=== PATIENT | male | born 1935 | race Caucasian/White ===

== ENCOUNTER → 2016-08-05 | Outpatient (CLI) | payer OTHER ==
[~2016-08-05] MED LIST: LISI-357 PO; OMEP20TA39 PO; SIMV20 PO
--- NOTE | 2016-08-28 13:18 | RSPPFT ---
DATE OF PROCEDURE: 08/05/16 COMMENTS: VOLUMES DYNAMIC: FVC and FEV1 normal. STATIC: VTG moderately increased; RV severely increased; TLC normal. FLOWS: FEV1% normal; FEF 25-75 normal. DIFFUSION: Normal. FLOW VOLUME LOOP: Normal configuration. IMPRESSION: Essentially normal pulmonary function. No significant airways obstruction or restriction. Airways resistance is normal. Diffusion is normal.
== END ==
LOC: HRSP 08:43
PROVIDERS: ATTEND Internal Medicine
DX: J44.9 Chronic obstructive pulmonary disease, unspecified (principal)
CPT/HCPCS: 94060; 94620; 94726; 94729

== ENCOUNTER 2017-01-23 13:59 | Inpatient (IN) | payer OTHER, MEDICARE ==
[~2017-01-23] VITALS: Ht 180.3 cm; Wt 95.5 kg
[2017-01-23] VITALS (9 sets, daily range): BP systolic 90–144; BP diastolic 52–92; PULSE 82–97; RESP 16–24; TEMP 97.6–98.2; O2SAT 95–100
[2017-01-23] MEDS ORDERED: SIMV20TA PO (14:20)
[2017-01-23] MEDS ORDERED: ALLO100T PO (14:20)
[2017-01-23] MEDS ORDERED: LISI-519 PO (14:20)
[2017-01-23] MEDS ORDERED: OMEP20TA PO ×2 (14:20→15:48)
--- NOTE | 2017-01-23 14:28 | PD ---
HPI Chief Complaint: Respiratory Symptoms Time Seen by Provider: 14:12 Travel History International Travel<30 days: No Contact w/Intl Traveler<30days: No Traveled to known affect area: No History of Present Illness HPI The patient is a 81-year-old male who presents to the emergency department for shortness of breath. The patient states he developed exertional shortness of breath yesterday. The patient states every time he stands up and ambulates he developed shortness of breath followed by nausea and diaphoresis. The patient will sit down in his symptoms will resolve. He denies any chest pain associated with his exertional shortness of breath. The patient does have a history of hypertension, hyperlipidemia, and tobacco use. He denies any known history of coronary artery disease, COPD, congestive heart failure, pulmonary embolism, or DVT. The patient is followed by his primary physician, Dr. Lucio Magana, and states that his primary physician referred him to the emergency department earlier today for EKG changes and exertional shortness of breath. The patient has been seen by gumming machine operator in the past, Dr. Mchugh. The patient states he had a stress test with his gumming machine operator approximate 6-7 years ago which was negative, however, states he has not seen his gumming machine operator in over 3 years. Symptoms are moderate, worse with exertion, and alleviated at rest. PFSH Past Medical History Hx Anticoagulant Therapy: No Cardiovascular Problems: Yes (htn on meds) High Cholesterol: Yes GERD: Yes Hypertension: Yes Respiratory: No Past Surgical History Joint Replacement: Yes Other Surgery: Yes (HERNIA REPAIR) Social History Alcohol Use: Yes (SOCAIL) Tobacco Use: Yes Substance Use: No Allergies-Medications (Allergen,Severity, Reaction): Coded Allergies: No Known Allergies (Unverified , 01/23/17) Reported Meds & Prescriptions Reported Meds & Active Scripts Active Reported Vitamin E 100 Unit Tab 100 Units PO DAILY Omeprazole 20 Mg Tab 0 PO DAILY Allopurinol 100 Mg Tab 100 Mg PO DAILY Lisinopril 5 Mg Tab 20 Mg PO DAILY Simvastatin 20 Mg Tab 40 Mg PO DAILY Review of Systems Except as stated in HPI: all other systems reviewed are Neg HENT: No: Lightheadedness Cardiovascular: Positive: Diaphoresis, Dyspnea on exertion, No: Chest Pain or Discomfort Respiratory: Positive: Shortness of Breath Gastrointestinal: Positive: Nausea Musculoskeletal: No: Weakness, Edema Neurologic: No: Dizziness Physical Exam Narrative GENERAL: Awake, alert, pleasant 81-year-old male who appears his stated age and is in no acute respiratory distress. SKIN: Focused skin assessment warm/dry. HEAD: Atraumatic. Normocephalic. EYES: No injection or drainage. ENT: No nasal bleeding or discharge. Lower dentures in place, no upper dentures noted. NECK: Trachea midline. No JVD. CARDIOVASCULAR: Regular rate and rhythm. No murmur appreciated. RESPIRATORY: No accessory muscle use. Clear to auscultation. Breath sounds equal bilaterally. GASTROINTESTINAL: Abdomen soft, non-tender, nondistended. No rebound tenderness. MUSCULOSKELETAL: No obvious deformities. No clubbing. No cyanosis. No edema. NEUROLOGICAL: Awake and alert. No obvious cranial nerve deficits. Motor grossly within normal limits. Normal speech. PSYCHIATRIC: Appropriate mood and affect; insight and judgment normal. Data Data Last Documented VS Vital Signs Date Time Temp Pulse Resp B/P Pulse Ox O2 Delivery O2 Flow Rate FiO2 01/23/17 15:33 90 18 90/75 99 01/23/17 14:38 Nasal Cannula 2 01/23/17 14:05 98.2 Orders Electrocardiogram (01/23/17 14:20) B-Type Natriuretic Peptide (01/23/17 14:20) Ckmb (Isoenzyme) Profile (01/23/17 14:20) Complete Blood Count With Diff (01/23/17 14:20) Comprehensive Metabolic Panel (01/23/17 14:20) Magnesium (Mg) (01/23/17 14:20) Prothrombin Time / Inr (Pt) (01/23/17 14:20) Act Partial Throm Time (Ptt) (01/23/17 14:20) Troponin I (01/23/17 14:20) Chest, Single Ap (01/23/17 14:20) Ecg Monitoring (01/23/17 14:20) Bilateral Bp Monitoring (01/23/17 14:20) Iv Access Insert/Monitor (01/23/17 14:20) Oximetry (01/23/17 14:20) Oxygen Administration (01/23/17 14:20) Aspirin Chew (Aspirin Chew) (01/23/17 14:30) Sodium Chloride 0.9% Flush (Ns Flush) (01/23/17 14:30) CKMB (01/23/17 14:23) CKMB% (01/23/17 14:23) Admit Order (Ed Use Only) (01/23/17 15:34) Consult Cardiology (01/23/17 ) Heparin Infusion PEARL.Q1H (01/23/17 15:40) Heparin Inj (Heparin Inj) (01/23/17 15:45) Heparin Inj (Heparin Inj) (01/23/17 21:45) Heparin Inj (Heparin Inj) (01/23/17 21:45) Heparin-D5w Inj (Heparin-D5w Inj) (01/23/17 15:45) Cbc No Diff, Includes Plts (01/26/17 06:00) Act Partial Throm Time (Ptt) (01/23/17 22:40) Occult Blood (Hemoccult) Stool (01/23/17 15:40) (Hub Use Only)Inp Phy Cons/Ref (01/23/17 ) Labs Laboratory Tests Test 01/23/17 14:23 White Blood Count 9.4 TH/MM3 Red Blood Count 3.91 MIL/MM3 Hemoglobin 12.9 GM/DL Hematocrit 38.9 % Mean Corpuscular Volume 99.5 FL Mean Corpuscular Hemoglobin 33.1 PG Mean Corpuscular Hemoglobin 33.3 % Concent Red Cell Distribution Width 14.8 % Platelet Count 179 TH/MM3 Mean Platelet Volume 8.8 FL Neutrophils (%) (Auto) 78.5 % Lymphocytes (%) (Auto) 15.0 % Monocytes (%) (Auto) 5.5 % Eosinophils (%) (Auto) 0.3 % Basophils (%) (Auto) 0.7 % Neutrophils # (Auto) 7.4 TH/MM3 Lymphocytes # (Auto) 1.4 TH/MM3 Monocytes # (Auto) 0.5 TH/MM3 Eosinophils # (Auto) 0.0 TH/MM3 Basophils # (Auto) 0.1 TH/MM3 CBC Comment DIFF FINAL Differential Comment Prothrombin Time 10.8 SEC Prothromb Time International 1.0 RATIO Ratio Activated Partial 29.9 SEC Thromboplast Time Sodium Level 138 MEQ/L Potassium Level 3.8 MEQ/L Chloride Level 103 MEQ/L Carbon Dioxide Level 24.3 MEQ/L Anion Gap 11 MEQ/L Blood Urea Nitrogen 33 MG/DL Creatinine 1.50 MG/DL Estimat Glomerular Filtration 45 ML/MIN Rate Random Glucose 101 MG/DL Calcium Level 9.4 MG/DL Magnesium Level 1.6 MG/DL Total Bilirubin 0.4 MG/DL Aspartate Amino Transf 27 U/L (AST/SGOT) Alanine Aminotransferase 28 U/L (ALT/SGPT) Alkaline Phosphatase 88 U/L Total Creatine Kinase 112 U/L Creatine Kinase MB 4.5 NG/ML Troponin I 0.39 NG/ML B-Type Natriuretic Peptide 325 PG/ML Total Protein 7.4 GM/DL Albumin 3.7 GM/DL MDM Medical Decision Making Medical Screen Exam Complete: Yes Emergency Medical Condition: Yes Medical Record Reviewed: Yes Interpretation(s) EKG reveals normal sinus rhythm with a rate in 91. The patient has T-wave changes noted in leads 1 and aVL. Patient also has inverted T waves in lead V3 , V4, V5, and V6. Last Impressions Chest X-Ray 01/23/17 1420 Signed Impressions: Service Date/Time: , January 23, 2017 14:43 - CONCLUSION: No acute disease. Rafi Still MD Laboratory Tests Test 01/23/17 14:23 White Blood Count 9.4 TH/MM3 Red Blood Count 3.91 MIL/MM3 Hemoglobin 12.9 GM/DL Hematocrit 38.9 % Mean Corpuscular Volume 99.5 FL Mean Corpuscular Hemoglobin 33.1 PG Mean Corpuscular Hemoglobin 33.3 % Concent Red Cell Distribution Width 14.8 % Platelet Count 179 TH/MM3 Mean Platelet Volume 8.8 FL Neutrophils (%) (Auto) 78.5 % Lymphocytes (%) (Auto) 15.0 % Monocytes (%) (Auto) 5.5 % Eosinophils (%) (Auto) 0.3 % Basophils (%) (Auto) 0.7 % Neutrophils # (Auto) 7.4 TH/MM3 Lymphocytes # (Auto) 1.4 TH/MM3 Monocytes # (Auto) 0.5 TH/MM3 Eosinophils # (Auto) 0.0 TH/MM3 Basophils # (Auto) 0.1 TH/MM3 CBC Comment DIFF FINAL Differential Comment Prothrombin Time 10.8 SEC Prothromb Time International 1.0 RATIO Ratio Activated Partial 29.9 SEC Thromboplast Time Sodium Level 138 MEQ/L Potassium Level 3.8 MEQ/L Chloride Level 103 MEQ/L Carbon Dioxide Level 24.3 MEQ/L Anion Gap 11 MEQ/L Blood Urea Nitrogen 33 MG/DL Creatinine 1.50 MG/DL Estimat Glomerular Filtration 45 ML/MIN Rate Random Glucose 101 MG/DL Calcium Level 9.4 MG/DL Magnesium Level 1.6 MG/DL Total Bilirubin 0.4 MG/DL Aspartate Amino Transf 27 U/L (AST/SGOT) Alanine Aminotransferase 28 U/L (ALT/SGPT) Alkaline Phosphatase 88 U/L Total Creatine Kinase 112 U/L Creatine Kinase MB 4.5 NG/ML Troponin I 0.39 NG/ML B-Type Natriuretic Peptide 325 PG/ML Total Protein 7.4 GM/DL Albumin 3.7 GM/DL Differential Diagnosis Differential diagnosis includes angina, acute coronary syndrome, congestive heart failure, COPD, deconditioning, valvular dysfunction, pleural effusion, pericardial effusion, pulmonary embolism. Narrative Course IV was established, labs are drawn and sent, and the patient was placed on cardiac telemetry monitoring and continuous pulse oximetry monitoring. EKG was ordered and interpreted. The patient was administered aspirin 162 mg orally. Chest x-ray was obtained. I reviewed the EMR, the patient had a pulmonary function test performed July 2016 which was unremarkable. There was no evidence of obstructive or restrictive disease. Chest x-ray was unremarkable. The patient's CK-MB percentage was elevated at 4.5, CPK was normal, troponin was elevated at 0.39. It appears the patient is having a NSTEMI, currently chest pain-free. I placed a call to the patient's gumming machine operator from several years ago, Dr. Fitzgerald, however, the office stated that the patient had not been seen in over 3 years and that the patient should go to the on-call physician. The patient has [employer], therefore, the on-call gumming machine operator for [facility], Dr. Chapa, was paged. I also discussed the patient with Dr. Willson, the [facility] hospitalist for admission. The patient will require transfer to [facility], cardiac telemetry and/or CIC and most likely will need cardiac catheterization. I will discuss heparin versus Lovenox with Dr. Chapa. I discussed the patient with Dr. Chapa who recommends heparin. I discussed the heparin plan with the admitting physicians. Critical Care Narrative Aggregate critical care time was 35 minutes. Time to perform other separately billable procedures was not included in the critical care time. My time did not include minutes spent treating any other patients simultaneously or on activities that did not directly contribute to the patient's treatment. The services I provided to this patient were to treat and/or prevent clinically significant deterioration that could result in: Anoxia, hypoxia, ischemia, arrhythmia, congestive heart failure, cardiomyopathy, and . I provided critical care services requiring my management, as noted below: Chart data review, documentation time, medication orders and management, vital sign assessments/reviewing monitor data, ordering and reviewing lab tests, ordering and interpreting/reviewing x-rays and diagnostic studies, care of the patient and discussion of the patient with the admitting physicians. Physician Communication Physician Communication The on-call [employer] physician was paged for admission. The on-call gumming machine operator for [facility] was paged. Diagnosis Primary Impression: NSTEMI (non-ST elevated myocardial infarction) Admitting Information Admitting Physician Requests: Admit Condition: Stable Rj Hernandez MD Jan 23, 2017 14:28
[2017-01-23] MEDS ORDERED: SODIUM CHLORIDE 0.9% FLUSH 10 ML FLUSH IVF PRN (14:30)
[2017-01-23] MEDS ORDERED: VITA100T65 PO (14:30)
[2017-01-23] MEDS ORDERED: ASPIRIN 81 MG CHEW TAB PO ONE (14:30)
[2017-01-23 14:37] LABS: AUTOMATED NEUTROPHIL # 7.4 TH/MM3 (1.8-7.7); BASOPHIL # 0.1 TH/MM3 (0-0.2); BASOPHIL % 0.7 % (0.0-2.0); EOSINOPHIL % 0.3 % (0.0-4.0); HEMATOCRIT 38.9 % (39.0-51.0); LYMPHOCYTE # 1.4 TH/MM3 (1.0-4.8); MEAN CELL VOLUME 99.5 FL (80.0-100.0); MEAN CORPUSCULAR HEMOGLOBIN 33.1 PG (27.0-34.0); MEAN CORPUSCULAR HGB CONC 33.3 % (32.0-36.0); MONO % 5.5 % (0.0-8.0); NEUT % 78.5 % (16.0-70.0); PLATELET COUNT 179 TH/MM3 (150-450); RED BLOOD COUNT 3.91 MIL/MM3 (4.50-5.90); RED CELL DISTRIBUTION WIDTH 14.8 % (11.6-17.2); WHITE BLOOD COUNT 9.4 TH/MM3 (4.0-11.0)
[2017-01-23 14:47] LABS: CHLORIDE 103 MEQ/L (98-107); POTASSIUM 3.8 MEQ/L (3.5-5.1); SODIUM (NA) 138 MEQ/L (136-145)
[2017-01-23 14:50] LABS: ANION GAP 11 MEQ/L (5-15); BICARBONATE 24.3 MEQ/L (21.0-32.0); MAGNESIUM 1.6 MG/DL (1.5-2.5)
[2017-01-23 14:51] LABS: BLOOD UREA NITROGEN 33 MG/DL (7-18); HEMO FLAGS DIFF FINAL
[2017-01-23 14:52] LABS: APTT (PATIENT) 29.9 SEC (24.3-30.1); PROTHROMBIN TIME - PATIENT 10.8 SEC (9.8-11.6)
--- NOTE | 2017-01-23 14:52 | RADRPT ---
EXAM DATE/TIME: 01/23/2017 14:43 [place] COMPARISON: No previous studies available for comparison. INDICATIONS : Shortness of breath on exertion. MEDICAL HISTORY : Hypertension. Hypercholesterolemia. Smoker. SURGICAL HISTORY : Hernia repair. Knee replacement. ENCOUNTER: Initial ACUITY: 2 days PAIN SCORE: 0/10 LOCATION: chest FINDINGS: A single view of the chest demonstrates the lungs to be symmetrically aerated without evidence of mas s, infiltrate or effusion. The cardiomediastinal contours are unremarkable. Osseous structures are intact. CONCLUSION: No acute disease. Rafi Still MD on January 23, 2017 at 14:50 Board Certified Radiologist. This report was verified electronically.
[2017-01-23 14:53] LABS: ALT (GPT) 28 U/L (12-78)
[2017-01-23 14:54] LABS: AST (GOT) 27 U/L (15-37); GLOMERULAR FILTRATION RATE 45 ML/MIN (>89)
[2017-01-23 14:55] LABS: TOTAL BILIRUBIN ADULT 0.4 MG/DL (0.2-1.0)
[2017-01-23 14:56] LABS: ALKALINE PHOSPHATASE 88 U/L (45-117); CREATINE KINASE 112 U/L (39-308)
[2017-01-23 15:08] LABS: CKMB 4.5 NG/ML (0.5-3.6)
[2017-01-23] MEDS ORDERED: HEPARIN SODIUM - IV 10,000 UNITS/10 ML VIAL IV ONE (15:45)
[2017-01-23] MEDS ORDERED: HEPARIN-D5W 25,000 U/250 ML 250 ML IV SCH (15:45)
[2017-01-23] MEDS ORDERED: ALPRAZolam 0.25 MG TAB PO PRN (16:00)
[2017-01-23] MEDS ORDERED: ONDANSETRON HCL 4 MG/2 ML VIAL IV PRN (16:00)
[2017-01-23] MEDS ORDERED: DOCUSATE SODIUM 100 MG CAP PO PRN (16:00)
--- NOTE | 2017-01-23 16:11 | HHI.HP ---
[facility] Service [facility] Primary Care Physician Lucio Magana MD Admission Diagnosis NSTEMI, elevated troponin, exertional dyspnea Diagnoses: Chief Complaint: Dyspnea on exertion Travel History International Travel<30 Days: No Contact w/Intl Traveler <30 Da: No Traveled to Known Affected Are: No History of Present Illness 81-year-old male with a medical history significant for hypertension, hyperlipidemia, gout, tobacco abuse who presented to the hospital with complaint of worsening shortness of breath on exertion. The patient reports for the past couple of months his physical abilities has been in decline. He has not been able to do as much yard work. Yesterday his symptoms became worse and he gets short of breath with minimal activities. Associated symptoms include diaphoresis and nausea. He denies chest pain. Initial workup in the emergency room revealed abnormal EKG with inverted T waves and elevated troponin I. ED physician discussed the case with cardiology who requested heparin drip and transferred to the [facility] for possible heart catheterization. Review of Systems Constitutional: DENIES: Fever Respiratory: COMPLAINS OF: Shortness of breath, DENIES: Cough Cardiovascular: COMPLAINS OF: Dyspnea on Exertion, DENIES: Chest pain, Palpitations, Syncope Gastrointestinal: COMPLAINS OF: Nausea, DENIES: Vomiting Past Family Social History Past Medical History hypertension Gout hyperlipidemia tobacco abuse Past Surgical History Tonsillectomy Left knee arthroscopic surgery and left knee replacement and revision. Reported Medications Reported Meds & Active Scripts Active Omeprazole 20 Mg Tab 20 Mg PO DAILY Reported Vitamin E 100 Unit Tab 100 Units PO DAILY Allopurinol 100 Mg Tab 100 Mg PO DAILY Lisinopril 5 Mg Tab 20 Mg PO DAILY Simvastatin 20 Mg Tab 40 Mg PO DAILY Allergies: Coded Allergies: No Known Allergies (Unverified , 01/23/17) Family History Reviewed. No known heart disease in close relatives. Social History Patient reports he has been smoking cigarettes on and off for a long time. When he does smoke, he reports smoking 8-10 cigarettes. Admits to drinking 2-3 beers daily. No history of alcohol withdrawal symptoms. Physical Exam Vital Signs Vital Signs Date Time Temp Pulse Resp B/P Pulse Ox O2 Delivery O2 Flow Rate FiO2 01/23/17 15:33 90 18 90/75 99 01/23/17 14:38 92 18 106/52 95 Nasal Cannula 2 113/77 01/23/17 14:30 98 01/23/17 14:05 98.2 94 16 138/92 97 Physical Exam GENERAL: This is a well-nourished, well-developed patient, in no apparent distress. SKIN: No rashes, ecchymoses or lesions. Cool and dry. HEAD: Atraumatic. Normocephalic. No temporal or scalp tenderness. EYES: Pupils equal round and reactive. Extraocular motions intact. No scleral icterus. No injection or drainage. ENT: Nose without bleeding, purulent drainage or septal hematoma. Throat without erythema, tonsillar hypertrophy or exudate. Uvula midline. Airway patent. NECK: Trachea midline. No JVD or lymphadenopathy. Supple, nontender, no meningeal signs. CARDIOVASCULAR: Regular rate and rhythm without murmurs, gallops, or rubs. RESPIRATORY: Clear to auscultation. Breath sounds equal bilaterally. No wheezes , rales, or rhonchi. GASTROINTESTINAL: Abdomen soft, non-tender, nondistended. No hepato-splenomegaly , or palpable masses. No guarding. MUSCULOSKELETAL: Extremities without clubbing, cyanosis, or edema. No joint tenderness, effusion, or edema noted. No calf tenderness. Negative Homans sign bilaterally. NEUROLOGICAL: Awake and alert. Cranial nerves II through XII intact. Motor and sensory grossly within normal limits. Five out of 5 muscle strength in all muscle groups. Normal speech. Laboratory Laboratory Tests Test 01/23/17 14:23 White Blood Count 9.4 Red Blood Count 3.91 Hemoglobin 12.9 Hematocrit 38.9 Mean Corpuscular Volume 99.5 Mean Corpuscular Hemoglobin 33.1 Mean Corpuscular Hemoglobin 33.3 Concent Red Cell Distribution Width 14.8 Platelet Count 179 Mean Platelet Volume 8.8 Neutrophils (%) (Auto) 78.5 Lymphocytes (%) (Auto) 15.0 Monocytes (%) (Auto) 5.5 Eosinophils (%) (Auto) 0.3 Basophils (%) (Auto) 0.7 Neutrophils # (Auto) 7.4 Lymphocytes # (Auto) 1.4 Monocytes # (Auto) 0.5 Eosinophils # (Auto) 0.0 Basophils # (Auto) 0.1 CBC Comment DIFF FINAL Differential Comment Prothrombin Time 10.8 Prothromb Time International 1.0 Ratio Activated Partial 29.9 Thromboplast Time Sodium Level 138 Potassium Level 3.8 Chloride Level 103 Carbon Dioxide Level 24.3 Anion Gap 11 Blood Urea Nitrogen 33 Creatinine 1.50 Estimat Glomerular Filtration 45 Rate Random Glucose 101 Calcium Level 9.4 Magnesium Level 1.6 Total Bilirubin 0.4 Aspartate Amino Transf 27 (AST/SGOT) Alanine Aminotransferase 28 (ALT/SGPT) Alkaline Phosphatase 88 Total Creatine Kinase 112 Creatine Kinase MB 4.5 Troponin I 0.39 B-Type Natriuretic Peptide 325 Total Protein 7.4 Albumin 3.7 Result Diagram: 01/23/17 1423 01/23/17 1423 Imaging Last Impressions Chest X-Ray 01/23/17 142 Signed Impressions: Service Date/Time: , January 23, 2017 14:43 - CONCLUSION: No acute disease. Rafi Still MD Assessment and Plan Problem List: (1) NSTEMI (non-ST elevated myocardial infarction) ICD Code: I21.4 Status: Acute (2) Hypertension ICD Code: I10 Status: Acute (3) Tobacco abuse ICD Code: Z72.0 Status: Acute (4) Hyperlipidemia ICD Code: E78.5 Status: Acute (5) Renal insufficiency ICD Code: N28.9 Status: Acute Assessment and Plan 81-year-old male with: NSTEMI: Chest pain-free but Elevated troponin and exertional dyspnea. Multiple risk factors including hypertension, age, hyperlipidemia, tobacco abuser. Patient already received aspirin. End Trimmer has been consulted. Plan to transfer the main hospital for heart catheterization On heparin drip per protocol Continue statin Hypertension: Last blood pressure was 90/75. Patient normally takes lisinopril 20 mg daily at home. Hold antihypertensives and beta blockers for now. Monitor blood pressure and introduce meds as indicated. Hyperlipidemia: Continue statin Renal insufficiency: May have some degree of CKD. Gentle IV hydration. Follow BMP in a.m. Gout: Continue allopurinol GI prophylaxis: Stool softener PRN constipation. DVT PPx: Lovenox Discussed Condition With Dr. Hernandez. Physician Certification 2 Midnight Certification Type: Admission for Inpatient Services Order for Inpatient Services The services are ordered in accordance with Medicare regulations or non- Medicare payer requirements, as applicable. In the case of services not specified as inpatient-only, they are appropriately provided as inpatient services in accordance with the 2-midnight benchmark. Estimated LOS (days): 3 days is the estimated time the patient will need to remain in the hospital, assuming treatment plan goals are met and no additional complications. Post-Hospital Plan: Home Zane Willson MD Jan 23, 2017 16:11
[2017-01-23] MEDS ORDERED: CHLORHEXIDINE GLUCONATE 2 % 1 PACK (2 CLOTHS)(extra cloths) TOPICAL PRN (20:00)
[2017-01-23] MEDS: SODIUM CHLOR 0.9% 1000 ML INJ 1,000 ML IV SCH (20:00)
[2017-01-23] MEDS ORDERED: HEPARIN SODIUM - IV 10,000 UNITS/10 ML VIAL IV PRN ×2 (21:45)
[2017-01-23 23:39] LABS: APTT (PATIENT) 50.7 SEC (24.3-30.1)
[2017-01-23 23:50] LABS: CREATINE KINASE 110 U/L (39-308); HDL CHOLESTEROL 61.5 MG/DL (40.0-60.0); LDL CHOLESTEROL 39 MG/DL (0-99)
[2017-01-24] VITALS (16 sets, daily range): BP systolic 108–136; BP diastolic 65–78; PULSE 65–85; RESP 17–39; TEMP 97.7–98.8; O2SAT 93–98
[2017-01-24 00:02] LABS: CKMB 4.4 NG/ML (0.5-3.6)
[2017-01-24] MEDS ORDERED: CHLORHEXIDINE GLUCONATE 2 % 1 PACK (2 CLOTHS)(taper/protocol) TOPICAL SCH (04:00)
[2017-01-24 06:52] LABS: APTT (PATIENT) 50.2 SEC (24.3-30.1)
[2017-01-24 06:54] LABS: BASOPHIL % 0.6 % (0.0-2.0); EOSINOPHIL # 0.1 TH/MM3 (0-0.4); HEMATOCRIT 35.6 % (39.0-51.0); HEMO FLAGS DIFF FINAL; LYMPH % 18.2 % (9.0-44.0); LYMPHOCYTE # 1.3 TH/MM3 (1.0-4.8); MEAN CELL VOLUME 101.4 FL (80.0-100.0); MEAN CORPUSCULAR HEMOGLOBIN 34.1 PG (27.0-34.0); MEAN CORPUSCULAR HGB CONC 33.6 % (32.0-36.0); MONO % 10.1 % (0.0-8.0); NEUT % 69.1 % (16.0-70.0); PLATELET COUNT 142 TH/MM3 (150-450); RED BLOOD COUNT 3.51 MIL/MM3 (4.50-5.90); RED CELL DISTRIBUTION WIDTH 14.3 % (11.6-17.2); WHITE BLOOD COUNT 7.2 TH/MM3 (4.0-11.0)
[2017-01-24 06:58] LABS: BICARBONATE 25.1 MEQ/L (21.0-32.0); POTASSIUM 3.6 MEQ/L (3.5-5.1)
--- NOTE | 2017-01-24 08:34 | HHI.PR ---
Subjective Remarks f/u; NSTEMI resting comfortably with no distress. no chest pain, sob or any other complaints. Objective Vitals Vital Signs Date Time Temp Pulse Resp B/P Pulse Ox O2 Delivery O2 Flow Rate FiO2 01/24/17 06:00 73 01/24/17 04:00 76 01/24/17 04:00 97.7 76 18 125/76 98 01/24/17 02:00 73 01/24/17 00:00 98.8 77 20 108/72 93 01/24/17 00:00 77 01/23/17 22:00 82 01/23/17 20:00 97.6 85 24 122/76 99 01/23/17 20:00 85 01/23/17 19:30 85 24 144/87 100 01/23/17 18:07 95 20 106/71 98 Nasal Cannula 2 01/23/17 16:54 97 20 119/70 96 01/23/17 15:33 90 18 90/75 99 01/23/17 14:38 92 18 106/52 95 Nasal Cannula 2 113/77 01/23/17 14:30 98 01/23/17 14:05 98.2 94 16 138/92 97 I/O 01/23/17 01/23/17 01/23/17 01/24/17 01/24/17 01/24/17 07:00 15:00 23:00 07:00 15:00 23:00 Intake Total 738 ml 709 ml Output Total 150 ml 200 ml Balance 588 ml 509 ml Intake Oral 480 ml IV Total 258 ml 709 ml Output Urine Total 150 ml 200 ml # Voids 1 Result Diagram: 01/24/17 0631 01/24/17 0631 Imaging Last Impressions Chest X-Ray 01/23/17 1420 Signed Impressions: Service Date/Time: January 14:43 - CONCLUSION: No acute disease. Rafi Still MD Objective Remarks GENERAL: This is a well-nourished, well-developed patient, in no apparent distress. CARDIOVASCULAR: Regular rate and regular rhythm without murmurs, gallops, or rubs. RESPIRATORY: Clear to auscultation. Breath sounds equal bilaterally. No wheezes , rales, or rhonchi. GASTROINTESTINAL: Abdomen soft, non-tender, nondistended. Normal, active bowel sounds MUSCULOSKELETAL: Extremities without clubbing, cyanosis, or edema. NEURO: Alert & Oriented x4 to person, place, time, situation. Moves all ext x4 Medications and IVs Current Medications Aspirin (Aspirin Chew) 162 mg ONCE ONCE PO Last administered on 01/23/17 14: 34; Start 01/23/17 at 14:30; Stop 01/23/17 at 14:31; Status DC Sodium Chloride (NS Flush) 2 ml UNSCH PRN IVF FLUSH AFTER USING IV ACCESS; Start 01/23/17 at 14:30 Heparin Sodium (Porcine) (Heparin Inj) 5,000 units ONCE ONCE IV Last administered on 01/23/17 15:58; Start 01/23/17 at 15:45; Stop 01/23/17 at 15:46 ; Status DC Heparin Sodium (Porcine) (Heparin Inj) 5,000 units UNSCH PRN IV APTT LESS THAN 25; Start 01/23/17 at 21:45 Heparin Sodium (Porcine) 2500 units 2,500 units UNSCH PRN IV APTT 25 TO 39; Start 01/23/17 at 21:45 Heparin Sodium/ Dextrose (Heparin-D5W Inj) 250 ml @ 0 mls/hr TITRATE IV Last administered on 01/23/17 15:59; Start 01/23/17 at 15:45 Allopurinol (Zyloprim) 100 mg DAILY PO ; Start 01/24/17 at 09:00 Pravastatin Sodium (Pravachol) 80 mg DAILY PO ; Start 01/24/17 at 09:00 Pantoprazole Sodium (Protonix) 20 mg DAILY PO ; Start 01/24/17 at 09:00 Docusate Sodium (Colace) 100 mg BID PRN PO CONSTIPATION; Start 01/23/17 at 16: 00 Alprazolam (Xanax) 0.25 mg Q8H PRN PO ANXIETY; Start 01/23/17 at 16:00 Ondansetron HCl 4 mg 4 mg Q6H PRN IV NAUSEA OR VOMITING; Start 01/23/17 at 16: 00 Sodium Chloride (NS 1000 ml Inj) 1,000 ml @ 84 mls/hr [id number] IV Last administered on 01/23/17 20:00; Start 01/23/17 at 16:00 Miscellaneous Information Patient in critical care unit? Ass... [id number] Last administered on 01/23/17t 20:00; Start 01/23/17 at 20:00 Chlorhexidine Gluconate (Chlorhexidine 2% Cloth) 3 pack DAILY@04 TOPICAL ; Start 01/24/17 at 04:00; Stop 01/28/17 at 04:01 Chlorhexidine Gluconate (Chlorhexidine 2% Cloth) 3 pack UNSCH PRN TOPICAL HYGIENIC CARE; Start 01/23/17 at 20:00; Stop 01/28/17 at 19:52 A/P Assessment and Plan A/P NSTEMI: Chest pain-free but Elevated troponin and exertional dyspnea. Multiple risk factors including hypertension, age, hyperlipidemia, tobacco abuser. On heparin drip per protocol Continue statin - awaiting cardiology evaluation. Hypertension: Patient normally takes lisinopril 20 mg daily at home. BP overall on low-side. Hold antihypertensives and beta blockers for now. Monitor blood pressure and introduce meds as indicated. Hyperlipidemia: Continue statin Renal insufficiency: May have some degree of CKD. Gentle IV hydration. Gout: Continue allopurinol GI prophylaxis: Stool softener PRN constipation. DVT PPx: Lovenox Discharge Planning awaiting cardiac work-up. Jada Marks MD Jan 24, 2017 08:34
[2017-01-24] MEDS ORDERED: PILL SPLITTER OTHER PRN (09:00)
[2017-01-24] MEDS: ALLOPURINOL 100 MG TAB PO SCH (09:49)
[2017-01-24] MEDS: PANTOPRAZOLE SOD 20 MG DELAYED RELEASE TAB PO SCH (09:49)
[2017-01-24] MEDS: PRAVASTATIN SOD 80 MG TAB PO SCH (09:49)
[2017-01-24] MEDS: SODIUM CHLOR 0.9% 1000 ML INJ 1,000 ML IV SCH ×2 (09:49→20:41)
[2017-01-24] MEDS: METOPROLOL TARTRATE 25 MG TAB PO SCH ×2 (09:54→20:41)
[2017-01-24] MEDS: ASPIRIN EC 81 MG TABEC PO SCH (09:54)
--- NOTE | 2017-01-24 10:07 | MB ---
cc: BRANDIN BOYKIN DATE OF CONSULTATION 01/24/2017 DATE OF REASON FOR CONSULTATION Elevated troponins HISTORY OF PRESENT ILLNESS 81-year-old male with a past medical history significant for hypertension, hyperlipidemia, smoker who presented to the hospital yesterday for complaints of worsening shortness of breath, dizziness and diaphoresis. The patient reports that on Friday he was having some stomach aches felt that his stomach was distended. Then on Friday, when he stood up a couple of times, he felt nausea, shortness of breath, dizziness and diaphoresis. On of this week, he came in to see the PCP who did an EKG, saw some T-wave inversions and referred him to the emergency department. In the emergency department, he was consulted to cardiology and started on a heparin drip and IV hydration, continued his statins and transferred him to the main campus for further management and evaluation. Currently I am being consulted for elevated troponins. REVIEW OF SYSTEMS Negative except for what is mentioned in the HPI. PAST MEDICAL HISTORY 1. Hypertension 2. Hyperlipidemia tobacco abuse. PAST SURGICAL HISTORY 1. Tonsillectomy 2. Left knee arthroscopic surgery 3. Left knee replacement and revision MEDICATIONS Home medications: 1. Simvastatin 20 mg p.o. daily 2. Lisinopril 5 mg p.o. daily 3. Allopurinol 100 mg p.o. daily 4. Vitamin E 100 units tab p.o. daily ALLERGIES NO KNOWN DRUG ALLERGIES. FAMILY HISTORY Noncontributory SOCIAL HISTORY He is a smoker. He drinks two to three beers daily and he denies any illicit drug use. PHYSICAL EXAMINATION VITAL SIGNS: Temperature 97, respiratory rate 18, heart rate 76, blood pressure 126/76. GENERAL: She is awake, alert, and oriented x3 in no acute distress. NECK: No JVD, no carotid bruits. HEART: Regular rate and rhythm. No murmurs, rubs or gallops. LUNGS: Clear to auscultation bilaterally. ABDOMEN: Positive bowel sounds, soft, nontender, nondistended. EXTREMITIES: No cyanosis or edema and pulses throughout. DATA CBC hemoglobin 12, hematocrit 35, platelet count of 442, INR 1. Chemistries sodium 141, potassium 3.6, BUN 34, creatinine 1.4 trending down from 1.5, troponin 0.39 and 0.30, LDL 39, HDL 61, triglycerides 102, TSH 2.6. Chest x-ray Shows no acute cardiopulmonary process. EKG sinus rhythm with T-wave inversions in the anterolateral leads suggestive of ischemia. ASSESSMENT/PLAN 81-year-old male presenting with vague symptoms of nausea, shortness of breath, dizziness and diaphoresis concerning for a ACS. Troponin mildly elevated in the range of 0.39 and 0.30, also with a history of chronic kidney disease. Currently he remains fairly afebrile and hemodynamically stable. He does not have any cardiovascular complaints. Telemetry monitoring has been unremarkable. I have discussed with the patient the recommendation of doing a left heart cath today to further risk stratify CAD. The patient has chronic kidney disease that he understands the risk of getting dye given his condition. The risks and benefits of left heart cath and possible PCI including but not limited to neurovascular trauma, infection, bleeding, acute kidney injury, and worsening of his chronic kidney disease, stroke, emergent bypass surgery and have been explained to the patient. The patient understands the risks and he is willing to proceed. RECOMMENDATIONS 1. Keep n.p.o. for left heart cath today 2. Get a 2-D echocardiogram to assess LV systolic function. 3. Start aspirin, statins and beta-blockers. Thank you for the opportunity to take part in the care of this patient. Patient further management to be determined. MD JAMIR Dumont/PAULINA /9:16 AM /9:39 AM NESHA
[2017-01-24] MEDS ORDERED: MIDAZOLAM HCL 2 MG/2 ML VIAL ONE (11:54)
[2017-01-24] MEDS ORDERED: HEPARIN-NS/PF INJ 500 ML ONE (11:55)
[2017-01-24] MEDS ORDERED: HEPARIN SODIUM - IV 10,000 UNITS/10 ML VIAL ONE (11:55)
[2017-01-24] MEDS ORDERED: ADENOSINE STRESS TEST INJ 90 MG/30 ML VIAL ONE (12:49)
--- NOTE | 2017-01-24 13:23 | CATHPROC ---
[employer] HIS Report Study Information Study Number Admission Scheduled Start Study Start [id number] Jan 23 2017 3:37PM 01/24/2017 Jan 24 2017 11:23AM [place] [facility] Cardiac Catheterization Admit Source Facility Department Emergency department [facility] Physician and Clinical Staff Initial [place] Roldan Drilling Rig OperatorIleana Manning,VAL Drilling Rig Operator Sadiq Velasquez RN Recorder Jeanmarie, Yung,RT(R) Zainab Villa,SAMREEN TECH2 Procedures Performed Procedure Location (Site) Vessel Name Coronary Angiograms RCA Right Coronary Wire insertion Fem Art (right) Femoral Art Equipment Time Rubber Ball Finisher Description Size Mfg Part Number Used/Scraped PERCLOSE, PRO GLIDE CLOSER 13:00 STREETER CRITICAL CARE FR 6 [id number] *[id number] Used DEVICE TRANSDUCER, TRBlackArrowAVE [id number] 12:01 DIAS MADRID * Used W/STOCKCOCK *[id number]- INTRODUCER SET, 12:01 [employer]. FR 5 SC-NT-U-SST Used MICROPUNCTURE, STIFFENED *[id number] [id number] *[id number] 534-521T *[id number] [id number] *[id number] 12:01 [employer] INDUSTRIES PACK, CCL CUSTOM * Used *[id number] 12:41 MEDTRONIC/AVE EBU 3.5 Z2 GUIDE CATHETER FR 6 Used *[id number] 12:01 [employer] MEDICAL WIRE, 3MMJ .035 180CM 180CM Used *[id number] 12:01 NAMIC MANIFOLD, 4 PORT * Used *[id number] 12:01 NYCOMED OMNIPAQUE, 350 MG, 150ML 150ML [id number] Used 12:28 NYCOMED OMNIPAQUE, 350 MG, 150ML 150ML [id number] Used [id number] 12:01 [employer] MEDICAL BLANKET,WARM AIR CCL * Used *[id number] 12:01 TERUMO MEDICAL SHEATH, FR5 TERUMO (10CM) FR 5 Used *[id number] 12:44 [place]OL[place] PRIME WIRE, VERRATA 185CM 185CM [id number] *[id number] Used History: Current Medications Medication Dosage/Unit Route Frequency Last Date/Time Taken Statins (any) Allopurinol LISINOPRIL History: Allergies Allergy Reaction No Known Allergies History: Risk Factors Family History of Hypertension Dyslipidemia Previous DE Previous Heart Failure Premature CAD Yes Yes No No No Prior Valve Prior PCI Prior CABG Surgery No No No Cerebrovascular Peripheral Artery Chronic Lung On Dialysis Diabetes Disease Disease Disease No No No No No History: Other Current Smoker Quit Packs a Day Years Used Pack Years No 1 Years Ago 1 30 30 Labs Hgb (g/dl) Hct (%) WBC (l/cumm) Platelets (thousands) 11.60-17.00 35.00-51.00 4.00-11.00 150.00-450.00 12.0 35.6 7.2 142 Glucose (mg/dl) BUN (mg/dl) Creatinine (mg/dl) BUN:Creatinine (1:x) 74.00-106.00 7.00-18.00 0.50-1.30 10.00-20.00 94 34 1.4 24.3 Na (meq/l) K (meq/l) 136.00-145.00 3.50-5.10 141 3.6 INR (PTT:PT) 0.90-1.10 1 CPK-MB (ng/ML) 0.50-3.60 Not Drawn Medication Medication Total Dose (Bolus/Oral) Medication Total Dosage/Unit 1% XYLOCAINE 20 mL FENTANYL 50 mcg HEPARIN 6300 units VERSED 1 mg Medications (Bolus/Oral) Medication Time Given Dosage/Unit Administered By Reason VERSED 01/24/2017 12:18:00 PM 1 mg Sadiq Velasquez 1 mg VERSED given in lab by Sadiq Velasquez RN via Peripheral IV. Ordered by [place] Epperson. FENTANYL 01/24/2017 12:19:00 PM 50 mcg Sadiq Velasquez 50 mcg FENTANYL given in lab by Sadiq Velasquez RN via Peripheral IV. Ordered by [place] Epperson. 1% XYLOCAINE 01/24/2017 12:20:05 PM 20 mL [place] Epperson 20 mL 1% XYLOCAINE given in lab by [place] Epperson in Right Groin via Subcutaneous. HEPARIN 01/24/2017 12:38:00 PM 6300 units Sadiq Velasquez 6300 units HEPARIN given by Sadiq Velasquez RN via Peripheral IV. Ordered by [place] Epperson. Medication (Drip) Medication Time Given Dosage/Unit Concentration/Unit Diluent (ml) Solution ADENOSINE DRIP 01/24/2017 12:54:36 PM 756 mg/hr 90 mg 90 NaCl .9 756 mg/hr ADENOSINE DRIP given in lab by Sadiq Velasquez RN in Left Forearm via Peripheral IV. Pump/Dr ip Flow = 756 ml/hr using NaCl .9 with a concentration of 90 mg in 90 ml. ADENOSINE DRIP 01/24/2017 12:57:41 PM 0 units/hr 0 STOPPED 0 units/hr ADENOSINE DRIP STOPPED given in lab by Sadiq Velasquez RN. Pump/Drip Flow = 0 ml/hr using [ Solution Name]. IV Solutions 01/24/2017 11:57:23 AM 0 mL (IV) 500 NaCl .9 IV Solutions given in lab by Salinas Epperson in Left Forearm via Peripheral IV. Pump/Drip Flow = 20 ml/hr using NaCl .9. Ordered by Salinas Epperson. IV Solutions 01/24/2017 1:05:41 PM 0 mL (IV) 500 NaCl .9 IV Solutions given in lab by Ileana Aguayo RN in Left Forearm via Peripheral IV. Pump/Drip Flow = 125 ml/hr using NaCl .9. Ordered by Salinas Epperson. Reason: As per physicians verbal order. Initial Case Assessment Cardiovascular HR Rhythm NIBP Chest Pain 68 sr 118/75 0 Edema Present Skin color Skin None Normal Warm Dry Circulatory - Right Pulses Posterior Tibial Femoral 1 2 Scale (0,1,2,3,4,d) Circulatory - Left Pulses Posterior Tibial Femoral 1 2 Scale (0,1,2,3,4,d) Neurological State Oriented to time-place- Alert Moves all extremities person Respiration - General Respiration Rate SpO2 (%) O2 (lpm) (B/min) 18 99 0 Final Case Assessment Cardiovascular HR Rhythm NIBP Chest Pain 68 sr 118/75 0 Edema Present Skin color Skin None Normal Warm Dry Circulatory - Right Pulses Posterior Tibial Femoral 1 2 Scale (0,1,2,3,4,d) Circulatory - Left Pulses Posterior Tibial Femoral 1 2 Scale (0,1,2,3,4,d) Neurological State Oriented to time-place- Alert Moves all extremities person Respiration - General Respiration Rate SpO2 (%) O2 (lpm) (B/min) 18 99 2 Chronological Log Time Study Chronological Log 11:45:10 Patient arrived via Bed. 11:45:11 Patient Name, D.O.B, / Armband Verified By R.N. 11:45:12 Consent signed by the physician and the patient and verified by the [facility] staff. 11:45:13 Pre-op and post- op instructions given; patient acknowledges understanding of instructions . 11:45:15 Verbal Stimulation=2 Physical Stimulation=2 Airway=2 Respiration=2 TOTAL=8. (0=absent, 1=l imited, 2=present) Vitals capture started with the following parameters, Patient=Adult, Interval=5 min, Initial P eqboevr=722 mmHg, 11:56:33 Deflation Rate=5 mmHg, Cuff placed on Left Leg 11:56:42 Presedation assessment performed by Sp[facility] Helper RN. 11:56:43 Patient has been NPO for More than 6Hrs. 11:56:46 Skin Breakdown-none present per patient. 11:57:08 A # 20 IV was noted in the Forearm (left). Grade = 0 11:57:14 HR=67 bpm, MQRZ=966/75 mmhg, SpO2=97.0 %, Resp=17 B/min, Antonio=2 IV Solutions given in lab by Salinas Epperson in Left Forearm via Peripheral IV. Pump/Drip Fl ow = 20 ml/hr using NaCl 11:57:23 .9. Ordered by Salinas Epperson. 11:57:44 History and physical on the chart or being dictated. Assessment: Initial Case, HR=68 BPM, Rhythm=sr, ULDY=551/75 mmhg, Chest Pain=0, Edema=None, Co rosalie=Normal, Skin = Warm, Dry Right Pulses: Post Tib=1, Femoral=2 11:57:47 Left Pulses: Post Tib=1, Femoral=2 Neurological: State=Alert, Ox3, [place] Respiration: Resp=18 B/min, SpO2=99 %, O2=0 lpm 11:58:04 Reference ECG taken 11:58:16 Bilateral groins prepped with 2% chlorhexidine, and with a 3 min. waiting time. 12:02:05 HR=68 bpm, PPIT=772/80 mmhg, SpO2=97.0 %, Resp=12 B/min, Antonio=2 12:04:09 Pressure channel 1 zeroed. 12:04:24 paged 12:07:06 HR=67 bpm, MWCA=237/80 mmhg, Resp=20 B/min, Antonio=2 12:12:07 HR=68 bpm, MRLE=950/72 mmhg, Resp=19 B/min, Antonio=2 12:17:06 HR=70 bpm, CJWO=662/80 mmhg, SpO2=99 %, Resp=15 B/min, Pain=0, Mirella=10, Antonio=2 12:17:54 MD arrived. 12:18:00 1 mg VERSED given in lab by Sadiq Velasquez, RN via Peripheral IV. Ordered by Aubrey Epperson. 12:19:00 50 mcg FENTANYL given in lab by Sadiq Velasquez, VAL via Peripheral IV. Ordered by Salinas Epperson. Time Out. Correct patient, correct procedure,correct physician, ,power injector not loaded with contrast with surgical 12:19:20 team present. Time Out Concurred by MD, individual staff and HOT STONE SETTER in procedure 12:19:38 Case Start 12:19:40 Verbal Stimulation=2 Physical Stimulation=2 Airway=2 Respiration=2 TOTAL=8. (0=absent, 1=li mited, 2=present) 12:20:05 20 mL 1% XYLOCAINE given in lab by Salinas Epperson in Right Groin via Subcutaneous. 12:22:09 HR=67 bpm, QHPE=530/66 mmhg, SpO2=97 %, Resp=17 B/min, Pain=0, Mirella=10, Antonio=2 Access site was Right Femoral Artery. MP KIT 12:25:25 12:25:35 A wire was inserted via Fem Art (right). 12:25:39 A SHEATH, FR5 TERUMO (10CM) FR 5 was advanced into the Fem Art (right) using the Percutaneo us technique. 12::38 An injection in the Fem Art (right) was made through the SHEATH, FR5 TERUMO (10CM) FR 5. 12:27:06 HR=67 bpm, NIBP=97/66 mmhg, SpO2=96 %, Resp=13 B/min, Pain=0, Mirella=10, Antonio=2 A JR 4.0 INFINITI CATHETER FR 5 was advanced over a wire. OMNIPAQUE, 350 MG, 150ML 150ML was us ed for 12:27:49 injections. Recorded Pressure: LV, HR=67, Condition=Condition 1 12:29:01 (Left Ventricle) LV 92/6/10 Recorded Pressure: LV, Ao, HR=66, Condition=Condition 1 12:29:24 (Left Ventricle) LV 95/3/9, (Aorta) Ao 90/52/70 12:31:02 The RCA was injected and visualized at various angles. OMNIPAQUE, 350 MG, 150ML 150ML used . Recorded Pressure: Ao, HR=68, Condition=Condition 1 12:31:12 (Aorta) Ao 92/57/72 12:31:47 Catheter was removed 12:32:05 HR=71 bpm, RLET=995/67 mmhg, SpO2=94.0 %, Resp=15 B/min, Pain=0, Mirella=10, Antonio=2 A JL 4.0 INFINITI CATHETER FR 5 was advanced over a wire. OMNIPAQUE, 350 MG, 150ML 150ML was us ed for 12:32:17 injections. 12:37:06 HR=69 bpm, PWXP=243/70 mmhg, SpO2=94 %, Resp=14 B/min, Pain=0, Mirella=10, Antonio=2 12:38:00 6300 units HEPARIN given by Sadiq Velasquez, VAL via Peripheral IV. Ordered by Aubrey Epperson. 12:40:49 Catheter was removed A EBU 3.5 Z2 GUIDE CATHETER FR 6 was advanced over a wire. OMNIPAQUE, 350 MG, 150ML 150ML was u sed for 12:40:51 injections. 12:42:07 HR=67 bpm, NIBP=95/63 mmhg, Resp=13 B/min, Antonio=2 12:44:00 A PRIME WIRE, VERRATA 185CM 185CM was inserted via Fem Art (right). 12:47:04 HR=67 bpm, NIBP=99/68 mmhg, Resp=13 B/min, Antonio=2 12:47:32 Interventional wire has crossed the lesion 12:49:42 Flow Wire was was placed in the LAD Prox. The FFR measures. The IFR measures 0.89 Percent. 12:50:31 Preparing to start Adenosine. 12:52:05 HR=66 bpm, KMNO=782/68 mmhg, Resp=16 B/min, Antonio=2 756 mg/hr ADENOSINE DRIP given in lab by Sadiq Velasquez, RN in Left Forearm via Peripheral IV. Pump/Drip Flow = 756 12:54:36 ml/hr using NaCl .9 with a concentration of 90 mg in 90 ml. 12:57:08 HR=68 bpm, VHME=876/60 mmhg, Resp=20 B/min, Antonio=2 0 units/hr ADENOSINE DRIP STOPPED given in lab by Sadiq Velasquez, RN. Pump/Drip Flow = 0 ml/hr using [Solution 12:57:41 Name]. 12:58:00 Flow Wire was was placed in the LAD Prox. The FFR measures 0.86 percent. 12:59:04 Wire removed 12:59:59 PERCLOSE, PRO GLIDE CLOSER DEVICE FR 6 placement in the Fem Art (right) 13:00:10 Case End 13:01:13 Sterile dressing applied to site 13:01:18 No case complications noted. 13:01:20 Cine recording checked. 13:01:25 Bedside Report will be given. 13:01:47 Contrast Scanned 13:02:07 HR=66 bpm, GXVY=902/75 mmhg, SpO2=95.0 %, Resp=20 B/min, Antonio=2 IV Solutions given in lab by Ileana Aguayo, VAL in Left Forearm via Peripheral IV. Pump/Drip Flow = 125 ml/hr using 13:05:41 NaCl .9. Ordered by Salinas Epperson. Reason: As per physicians verbal order. 13:07:14 HR=67 bpm, NXOR=255/65 mmhg, SpO2=94.0 %, Resp=17 B/min, Antonio=2 Assessment: Final Case, HR=68 BPM, Rhythm=sr, UMQO=038/75 mmhg, Chest Pain=0, Edema=None, [place] r=Normal, Skin = Warm, Dry Right Pulses: Post Tib=1, Femoral=2 13:14:32 Left Pulses: Post Tib=1, Femoral=2 Neurological: State=Alert, Ox3, [place] Respiration: Resp=18 B/min, SpO2=99 %, O2=2 lpm 13:15:22 Patient moved to stretcher End Study - Contrast Media Used In Study Contrast Total Opened (mL) Total Used (mL) Total Wasted (mL) Omnipaque 40 40 0 End Study - Maximum Contrast Load Max Contrast Load (mL) 321.8 End Study - Radiation Exposure Fluoro Time (minutes) 9.3 End Study - Patient Disposition Complications Transferred To Critical Care Bed
--- NOTE | 2017-01-24 13:37 | MA ---
cc: BRANDIN BOYKIN DATE 01/24/2017 DATE OF 1935 PROCEDURE PERFORMED 1. Left heart catheterization 2. Selective right and left coronary angiography. 3. Left ventricular hemodynamics 4. Right common femoral artery angiography INDICATION [id number] MO. DESCRIPTION OF PROCEDURE Consent was signed. The patient was brought into the cardiac cath in a fasting state. The right groin was prepped and draped in a sterile fashion. Using 1% lidocaine for local anesthesia and a micropuncture kit, a 5-New Zealander sheath was inserted into the right common femoral artery. Right common femoral artery angiography was performed to confirm position of the sheath and then selective right and left coronary angiography was performed with a JR-4 and JL-4 diagnostic catheters. Angiography was taken in multiple views. The JR-4 diagnostic catheter was introduced into the ventricle over a wire. This was followed by pressure recordings, hemodynamics and pullback. An LV gram was not performed given the patient's chronic kidney disease. There was a 70% visual lesion in the proximal LAD because of uncertainty of the significance of the lesion and IFR/FFR was performed for this. The 5-New Zealander sheath was exchanged for a 6-[place] Ze[place]ander sheath. The heparin was given for IV anticoagulation. The left main was engaged with an EBU 3.5 guide. This was followed by normalizing the pressure wire outside the vessel and then advancing the pressure wire distally into the LAD. After that, we did IFR. The IFR was 0.89 which is in the cut off for normality thus we perform an FFR with IV adenosine infusion. The final FFR was 0.86. Thus no intervention was performed. The patient tolerated the procedure well without complications. Estimated blood loss less than 30 cc. Total contrast used 40 cc. The right groin access site was closed with a Perclose device. RESULTS LEFT VENTRICLE The left ventricular pressure was 95/3 with an LVEDP of 9. The aortic pressure was 92/57 with a mean of 72. There was no gradient upon pullback from the left ventricle to the aorta. ANGIOGRAPHIC RESULTS - Right coronary artery. The right coronary artery is a big vessel measuring more than 4 mm. It has ectatic lesions throughout and is giving off the PDA and a PLB branch. There is a small flow on the right coronary artery giving mostly in part because of the high caliber vessel size. - The left main is short and patent. - The left circumflex artery is also a significant sized vessel measuring more than 4 mm. It also has some ectatic changes inside the vessel, however, no significant obstruction. The circumflex is giving two OM branches which are patent with GENIE-III flow and nonobstructive coronary artery disease. - The LAD is a transapical vessel giving off two diagonal branches. It has a 60 % lesion in its proximal segment. This lesion was IFR and FFR and it was negative for ischemia. CONCLUSION Nonobstructive coronary artery disease. RECOMMENDATIONS Continue aggressive medical management for primary prevention of CAD, as well as therapeutic lifestyle changes. The patient will go back to [facility] for post cath care. MD JAMIR Dumont/PAULINA /1:05 PM /1:16 PM NESHA
--- NOTE | 2017-01-24 14:12 | EKG ---
Date Performed: 01/23/2017 Time Performed: 21:47:41 PTAGE: 81 years EKG: Sinus rhythm LOW QRS VOLTAGE IN EXTREMITY LEADS MODERATE T-WAVE ABNORMALITY, CONSIDER ANTEROLATERAL ISCHEMIA Comp ared to prior tracing nonspecific T wave changes are more prominent ABNORMAL ECG PREVIOUS TRACING : 01/23/2017 17.34 DOCTOR: Holden Morales Interpretating Date/Time 01/24/2017 14:11:20
--- NOTE | 2017-01-24 14:35 | EKG ---
Date Performed: 01/23/2017 Time Performed: 14:21:47 PTAGE: 81 years EKG: Sinus rhythm MODERATE T-WAVE ABNORMALITY, CONSIDER ANTERIOR ISCHEMIA ABNORMAL ECG NO PREVIOUS TRACING DOCTOR: Holden Morales Interpretating Date/Time 01/24/2017 14:33:53
--- NOTE | 2017-01-24 14:42 | EKG ---
Date Performed: 01/24/2017 Time Performed: 04:52:06 PTAGE: 81 years EKG: Sinus rhythm with PVC(s) with borderline 1st degree A-V block Prolonged QT interval Possible anterior infarct - a ge undetermined Inferior/lateral ST-T changes may be due to myocardial ischemia Low QRS voltages in l imb leads Abnormal ECG PREVIOUS TRACING : 01/23/2017 21.47 Since previous tracing, no significant change noted DOCTOR: Holden Morales Interpretating Date/Time 01/24/2017 14:40:24
--- NOTE | 2017-01-24 14:42 | EKG ---
Date Performed: 01/23/2017 Time Performed: 17:34:09 PTAGE: 81 years EKG: Sinus rhythm MARKED LEFT AXIS DEVIATION PATTERN CONSISTENT WITH PULMONARY DISEASE MODERATE INTRAVENTRICULAR CONDU CTION DELAY ST DEVIATION AND MODERATE T-WAVE ABNORMALITY, CONSIDER ANTERIOR ISCHEMIA ABNORMAL ECG PREVIOUS TRACING : 01/23/2017 14.21 Since previous tracing, no significant change noted DOCTOR: Holden Morales Interpretating Date/Time 01/24/2017 14:40:37
[2017-01-24] MEDS ORDERED: IOHEXOL 350 MG/ML 50 ML BTL (for Cath Lab) OTHER ONE (16:17)
[2017-01-25] VITALS (23 sets, daily range): BP systolic 102–148; BP diastolic 50–75; PULSE 61–80; RESP 14–45; TEMP 98.2–98.5; O2SAT 92–97
[2017-01-25] MEDS: SODIUM CHLOR 0.9% 1000 ML INJ 1,000 ML IV SCH (05:58)
[2017-01-25 07:13] LABS: APTT (PATIENT) 29.2 SEC (24.3-30.1)
[2017-01-25 07:25] LABS: BICARBONATE 25.1 MEQ/L (21.0-32.0); POTASSIUM 3.5 MEQ/L (3.5-5.1)
[2017-01-25] MEDS: PANTOPRAZOLE SOD 20 MG DELAYED RELEASE TAB PO SCH (08:34)
[2017-01-25] MEDS: ALLOPURINOL 100 MG TAB PO SCH (08:34)
[2017-01-25] MEDS: ASPIRIN EC 81 MG TABEC PO SCH (08:34)
[2017-01-25] MEDS: METOPROLOL TARTRATE 25 MG TAB PO SCH (08:34)
[2017-01-25] MEDS: PRAVASTATIN SOD 80 MG TAB PO SCH (08:34)
[2017-01-25] MEDS ORDERED: LISINOPRIL 5 MG TAB PO SCH (09:15)
[2017-01-25] MEDS ORDERED: POTASSIUM CHLORIDE 10 MEQ CAP PO ONE (09:15)
--- NOTE | 2017-01-25 09:17 | HHI.PR ---
Subjective Remarks Pt states "I feel like a million bucks". Denies any CP/SOB/n/v/diaphoresis. eating breakfast hopeful to go home this morning. Objective Vitals Vital Signs Date Time Temp Pulse Resp B/P Pulse Ox O2 Delivery O2 Flow Rate FiO2 01/25/17 06:00 66 01/25/17 04:00 98.2 67 14 111/58 96 01/25/17 04:00 67 01/25/17 02:00 67 01/25/17 00:00 64 01/25/17 00:00 98.5 64 16 102/50 93 01/24/17 22:00 70 01/24/17 20:00 84 01/24/17 20:00 98.4 84 28 117/65 94 01/24/17 18:00 74 01/24/17 17:00 80 01/24/17 16:00 70 01/24/17 16:00 98.0 70 39 136/72 94 01/24/17 15:00 68 01/24/17 14:00 65 01/24/17 11:00 71 01/24/17 10:00 85 I/O 01/24/17 01/24/17 01/24/17 01/25/17 01/25/17 01/25/17 07:00 15:00 23:00 07:00 15:00 23:00 Intake Total 709 ml 250 ml 1202 ml 1056 ml Output Total 200 ml 150 ml 150 ml Balance 509 ml 250 ml 1052 ml 906 ml Intake Oral 250 ml 300 ml 100 ml IV Total 709 ml 902 ml 956 ml Output Urine Total 200 ml 150 ml 150 ml # Voids 2 1 1 # Bowel Movements 1 Result Diagram: 01/24/17 0631 01/25/17 0626 Imaging Last Impressions Chest X-Ray 01/23/17 1420 Signed Impressions: Service Date/Time: January 14:43 - CONCLUSION: No acute disease. Rafi Still MD Objective Remarks GENERAL: sitting up in chair, eating breakfast. EYES: EOMI CARDIOVASCULAR: Regular rate and regular rhythm without murmurs RESPIRATORY: Clear to auscultation. Breath sounds equal bilaterally. No wheezes , GASTROINTESTINAL: Abdomen soft, non-tender, nondistended. MUSCULOSKELETAL: Extremities without edema. NEURO: Alert & Oriented. Moves all ext x4 A/P Problem List: (1) NSTEMI (non-ST elevated myocardial infarction) ICD Code: I21.4 Status: Acute (2) Hypertension ICD Code: I10 Status: Acute (3) Tobacco abuse ICD Code: Z72.0 Status: Acute (4) Hyperlipidemia ICD Code: E78.5 Status: Acute (5) Renal insufficiency ICD Code: N28.9 Status: Acute Assessment and Plan NSTEMI: Chest pain-free but Elevated troponin and exertional dyspnea. Multiple risk factors including hypertension, age, hyperlipidemia, tobacco abuser. s/p heparin drip Continue statin - sp cardiac cath 01/24/17 showing non obstructive CAD. continue pravastatin, lopressor and ASA. - ECHO pending. Hypertension: - on lopressor. add low dose lisinopril 2.5mg po daily. Hyperlipidemia: Continue statin Renal insufficiency: resolved. po hydration. monitor as an outpatient Gout: Continue allopurinol GI prophylaxis: Stool softener PRN constipation. DVT PPx: Lovenox Discharge Planning anticipate discharge later today once ECHO results available and cards notified heart healthy diet activity adlib condition: Kadi Reeder MD Jan 25, 2017 09:17
[2017-01-25] MEDS ORDERED: ASPI-99 PO (09:19)
[2017-01-25] MEDS ORDERED: METO25TA3 PO (09:19)
[2017-01-25] MEDS ORDERED: LISI-519 PO (09:19)
[2017-01-25] MEDS ORDERED: SIMV20TA PO (09:19)
[2017-01-25] MEDS ORDERED: ENOXAPARIN SODIUM 40 MG/0.4 ML SYRINGE SQ SCH (10:00)
--- NOTE | 2017-01-25 10:59 | PD.CARD.PN ---
Subjective Subjective Remarks Pt feels well, wants to go home Objective Medications Administered Medications Medications (Trade) Dose Ordered Sig/Ricky Route PRN Reason Start Time Stop Time Status Last Admin Dose Admin Allopurinol (Zyloprim) 100 mg DAILY PO 01/24/17 09:00 01/25/17 08:34 Pravastatin Sodium (Pravachol) 80 mg DAILY PO 01/24/17 09:00 01/25/17 08:34 Pantoprazole Sodium (Protonix) 20 mg DAILY PO 01/24/17 09:00 01/25/17 08:34 Alprazolam 0.25 mg 0.25 mg Q8H PRN PO ANXIETY 01/23/17 16:00 01/24/17 20:41 Sodium Chloride (NS 1000 ml Inj) 1,000 ml @ 125 mls/hr Q8H IV 01/23/17 16:00 01/25/17 05:58 Miscellaneous Information Patient in critical care unit? Ass... [id number] .XX 01/23/17 20:00 01/23/17 20:00 Chlorhexidine Gluconate (Chlorhexidine 2% Cloth) 3 pack DAILY@04 TOPICAL 01/24/17 04:00 01/28/17 04:01 01/25/17 04:00 Aspirin (Ecotrin Ec) 81 mg DAILY PO 01/24/17 09:00 01/25/17 08:34 Metoprolol Tartrate (Lopressor) 12.5 mg Q12HR PO 01/24/17 09:00 01/25/17 08:34 Vital Signs / I&O Vital Signs Date Time Temp Pulse Resp B/P Pulse Ox O2 Delivery O2 Flow Rate FiO2 01/25/17 09:00 76 45 148/75 97 01/25/17 08:19 64 16 127/69 97 01/25/17 08:00 69 19 92 01/25/17 06:00 66 01/25/17 04:00 98.2 67 14 111/58 96 01/25/17 04:00 67 01/25/17 02:00 67 01/25/17 00:00 64 01/25/17 00:00 98.5 64 16 102/50 93 01/24/17 22:00 70 01/24/17 20:00 84 01/24/17 20:00 98.4 84 28 117/65 94 01/24/17 18:00 74 01/24/17 17:00 80 01/24/17 16:00 70 01/24/17 16:00 98.0 70 39 136/72 94 01/24/17 15:00 68 01/24/17 14:00 65 01/24/17 11:00 71 I/O 01/24/17 01/24/17 01/24/17 01/25/17 01/25/17 01/25/17 07:00 15:00 23:00 07:00 15:00 23:00 Intake Total 709 ml 250 ml 1202 ml 1056 ml Output Total 200 ml 150 ml 150 ml Balance 509 ml 250 ml 1052 ml 906 ml Intake Oral 250 ml 300 ml 100 ml IV Total 709 ml 902 ml 956 ml Output Urine Total 200 ml 150 ml 150 ml # Voids 2 1 1 # Bowel Movements 1 Physical Exam GENERAL: This is a well-nourished, well-developed patient, in no apparent distress. CARDIOVASCULAR: Regular rate and rhythm without murmurs, gallops, or rubs. RESPIRATORY: Clear to auscultation. Breath sounds equal bilaterally. No wheezes , rales, or rhonchi. GASTROINTESTINAL: Abdomen soft, non-tender, nondistended. Normal active bowel sounds MUSCULOSKELETAL: Extremities without clubbing, cyanosis, or edema. NEURO: Alert & Oriented x4 to person, place, time, situation. Moves all ext x4 Laboratory Laboratory Tests Test 01/25/17 06:26 Activated Partial 29.2 SEC Thromboplast Time Sodium Level 142 MEQ/L Potassium Level 3.5 MEQ/L Chloride Level 108 MEQ/L Carbon Dioxide Level 25.1 MEQ/L Anion Gap 9 MEQ/L Blood Urea Nitrogen 27 MG/DL Creatinine 1.09 MG/DL Estimat Glomerular Filtration 65 ML/MIN Rate Random Glucose 88 MG/DL Calcium Level 8.4 MG/DL Imaging Last Impressions Chest X-Ray 01/23/17 1420 Signed Impressions: Service Date/Time: January 14:43 - CONCLUSION: No acute disease. Rafi Still MD Assessment and Plan Problem List: (1) Troponin level elevated Assessment and Plan: mild cad by cath, continue medical mgt; prelim echo findings show good LVEF; will read formally later today, if no major findings can be discharged home. Marty Ruiz MD Jan 25, 2017 10:59
--- NOTE | 2017-01-25 14:33 | ECHRPT ---
Indication: coronary atherosclerosis CONCLUSIONS Normal left ventricular size. Mild concentric left ventricular hypertrophy. The left ventricular systolic function is normal with an estimated ejection fraction in the range of 55-60%. Moderate mitral annular calcification. Trace mitral valve regurgitation. Trace aortic valve regurgitation. A prominent epicardial fat pad is present. BP: / HR: Rhythm: Sinus Technical Quality:Good FINDINGS LEFT VENTRICLE Normal left ventricular size. Mild concentric left ventricular hypertrophy. The left ventricular systolic function is normal with an estimated ejection fraction in the range of 55-60%. RIGHT VENTRICLE Normal right ventricular size and systolic function. LEFT ATRIUM The left atrial size is normal. RIGHT ATRIUM The right atrial size is normal. ATRIAL SEPTUM Normal atrial septal thickness without atrial level shunting by limited color doppler interrogation. AORTA The aortic root and proximal ascending aorta are normal in size on limited imaging. MITRAL VALVE Moderate mitral annular calcification. Trace mitral valve regurgitation. AORTIC VALVE Trace aortic valve regurgitation. TRICUSPID VALVE Structurally normal tricuspid valve. No tricuspid valve stenosis or regurgitation. PULMONARY VALVE The pulmonary valve is not well visualized. VESSELS The inferior vena cava is normal in size. PERICARDIUM A prominent epicardial fat pad is present. Marty Ruiz MD (Electronically Signed) Final Date:25 January 2017 14:33
== END 2017-01-25 13:00 | disposition home or self-care (01) | DRG 282 ==
LOC: PHED 13:59 → PHEDA 15:37 → HIME 19:25 → HIMW 01-24 17:20
PROVIDERS: ADMIT Hospitalist; ATTEND Hospitalist
PROC: 4A023N7 Measurement of Cardiac Sampling and Pressure, Left Heart, Percutaneous Approach (ICD-10-PCS; principal; 2017-01-23)
PROC: B2111ZZ Fluoroscopy of Multiple Coronary Arteries using Low Osmolar Contrast (ICD-10-PCS; 2017-01-23)
PROC: B2151ZZ Fluoroscopy of Left Heart using Low Osmolar Contrast (ICD-10-PCS; 2017-01-23)
PROC: 4A033BC Measurement of Arterial Pressure, Coronary, Percutaneous Approach (ICD-10-PCS; 2017-01-23)
PROC: B41F1ZZ Fluoroscopy of Right Lower Extremity Arteries using Low Osmolar Contrast (ICD-10-PCS; 2017-01-23)
DX: I21.4 Non-ST elevation (NSTEMI) myocardial infarction (principal); I12.9 Hypertensive chronic kidney disease with stage 1 through stage 4 chronic kidney disease, or unspecified chronic kidney disease; I25.119 Atherosclerotic heart disease of native coronary artery with unspecified angina pectoris; N18.9 Chronic kidney disease, unspecified; E78.00 Pure hypercholesterolemia, unspecified; K21.9 Gastro-esophageal reflux disease without esophagitis; F17.210 Nicotine dependence, cigarettes, uncomplicated; M10.9 Gout, unspecified; Z96.652 Presence of left artificial knee joint
CPT/HCPCS: 71010; 80048; 80053; 80061; 82550; 82552; 83735; 83880; 84443; 84484; 85025; 85610; 85730; 87641; 93005; 93306; 93454; 93571; 99291; C1760; C1769; C1893; G0269; J0153; J1644; J1650; J2250; J3010; J7030; Q9967

== ENCOUNTER 2018-04-06 10:10 | Inpatient (IN) ==
[2018-04-06 12:10] LABS: Clarity,Urine Clear (Clear); Color,Urine Yellow (Yellw/Straw); Glucose,Urine (UA) Negative (Negative); Leukocyte Esterase,Urine Moderate (Negative); Nitrite,Urine Negative (Negative); Specific Gravity,Urine Greater/Equal 1.030 (1.002-1.035); Urobilinogen,Urine 0.2 mg/dL (Less than 2)
[2018-04-06 12:15] LABS: Bilirubin,Urine Negative (Negative); Ictotest,Urine Negative (Negative)
[2018-04-06 12:16] LABS: Bacteria,Urine Many /hpf; WBC,Urine 51-189 /hpf (0-5)
[2018-04-06 12:17] LABS: Sperm,Urine Few /hpf
[2018-04-06 12:18] LABS: RBC,Urine 0-3 /hpf (0-3)
[2018-04-06] MEDS ORDERED: Sod Chloride 0.9% Inj 1,000 ML IV.SIG ONE (12:24)
--- NOTE | 2018-04-06 12:28 | ED ---
HPI General Chief complaint: Urogenital-Male Stated complaint: dizzy/nausea x Time Seen by Provider: 04/06/18 12:17 Source: patient and RN notes reviewed Mode of arrival: ambulatory Limitations: no limitations History of Present Illness HPI Narrative: 83-year-old male presents to the emergency department for evaluation of urinary symptoms that started on , 4 days ago. Patient reports dysuria, frequency, urgency. He states he ran a fever last night of 102. He took [id number] medication for his fever. Patient reports nausea , but no vomiting. No diarrhea or constipation. He denies history of urinary infections. No headache. No chest pain. No shortness of breath. No cough or congestion. No abdominal pain. Patient has history of hypertension, hyperlipidemia. He reports decreased appetite his states that he has not eaten in 3 days. He reports generalized weakness. He denies any dizziness, syncope. Moderate severity. MD Complaint: Reports dysuria Onset (ago): day(s) (4) Duration: constant Severity: moderate Relieving factors: urination Exacerbating factors: none Reports dysuria, fever and nausea/vomiting Related Data Home Medications Medication Instructions Recorded Confirmed allopurinol 100 mg PO DAILY 04/06/18 04/06/18 lisinopril 20 mg PO DAILY 04/06/18 04/06/18 omeprazole 20 mg PO DAILY 04/06/18 04/06/18 simvastatin 20 mg PO DAILY 04/06/18 04/06/18 vitamin E 1,000 unit PO DAILY 04/06/18 04/06/18 Allergies Allergy/AdvReac Type Severity Reaction Status Date / Time No Known Allergies Allergy Verified 04/06/18 10:19 Review of Systems ROS: all other systems reviewed are negative PMFSH Medical History Medical History GERD (gastroesophageal reflux disease) (Acute) Gout (Acute) High cholesterol (Acute) Hypertension (Acute) Surgical History Surgical History H/O knee surgery (Acute) Family History Family History Mother Family history of Alzheimer's disease Daughter Family history of cancer Father Family history of cancer Social History Social History Substance History: No History of Abuse Second Hand Smoke Exposure: No Smoking Status: Never smoker How Often Do You Have a Drink Containing Alcohol: Never Exam Narrative Exam Narrative: GENERAL: Well-nourished, well-developed elderly male patient, afebrile. SKIN: Focused skin assessment warm/dry. HEAD: Normocephalic. Atraumatic ENT: Mucosa pink and moist. No erythema or exudates. No uvular edema. No uvular , palatal, or tonsillar deviation. Airway patent. Nasal turbinates appear normal without nasal blood, purulent drainage or septal hematoma. Bilateral tympanic membranes clear without erythema or perforation. EYES: No scleral icterus. No injection or drainage. NECK: Supple, trachea midline. No JVD or lymphadenopathy. CARDIOVASCULAR: Regular rate and rhythm without murmurs, gallops, or rubs. RESPIRATORY: Breath sounds equal bilaterally. No accessory muscle use. Lung sounds are clear to auscultation GASTROINTESTINAL: Abdomen soft, non-tender, nondistended. MUSCULOSKELETAL: No cyanosis, or edema. BACK: Nontender without obvious deformity. No CVA tenderness. Course Initial Documented Vital Signs Temperature 99.1 F 04/06/18 10:14 Pulse Rate 107 H 04/06/18 10:14 Respiratory Rate 16 04/06/18 10:14 Blood Pressure 101/66 04/06/18 10:14 Pulse Oximetry 97 04/06/18 10:14 Last Documented Vital Signs Temperature 98.8 F 04/06/18 15:14 Pulse Rate 84 04/06/18 15:14 Respiratory Rate 18 04/06/18 15:14 Blood Pressure 117/74 04/06/18 15:14 Pulse Oximetry 95 04/06/18 14:35 Discharge Plan Discharge Disposition Patient Disposition: 30 Still Patient Discharge Details Diagnosis: Acute UTI, Sepsis Physicians Team ED Provider: Aurelio Feldman ED Midlevel Provider: Avis Koch Primary Care Provider: Lucio Magana Attending Provider: Alize Frederick Status ED Status: Left Department Discharge Information Discharge Date/Time: 04/06/18 15:30 Medical Decision Making ANGLE Attestation ANGLE supervised visit: Yes Attestation: I have seen the patient and reviewed the lab work and agree with the plan of care MDM Narrative Medical decision making narrative: 83-year-old male presents to the emergency department for evaluation of fever, urinary symptoms, nausea, weakness since . He reports fever of 102 last night. IV access obtained. CBC, CMP, magnesium, PTT, PT/INR, UA, lactic acid, blood cultures x2 are ordered and pending. Chest x-ray, CT abdomen/pelvis without contrast ordered and pending. Patient is given normal saline 1 L IV bolus CBC shows leukocytosis 17.1, neutrophil percentage 91.9. CMP shows slight hyponatremia 133, BUN 48, creatinine 1.90. Magnesium is 1.4. Lactic acid is 2.1. PTT is 33.6. PT/INR is 9.4/0.9. UA shows trace ketones, moderate leukocyte esterase, 5189 WBC, many bacteria. Chest x-ray is negative. 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 Patient is given Rocephin 1 g IV. My attending physician, Dr. Feldman, is also examined patient agrees with plan and disposition. Patient will be admitted for UTI, sepsis. Medical Screen Exam Complete: Yes Emergency Medical Condition: Yes Differential Diagnosis Differential Diagnosis: UTI vs sepsis vs. pyelonephritis vs. metabolic derangement vs ELIZABETH vs. dehydration Medical Records Medical records reviewed: Yes I reviewed the patient's medical records. Lab Data Result diagrams: 04/06/18 12:28 04/06/18 12:28 Lab Results 04/06/18 04/06/18 04/06/18 Range/Units 11:50 12:28 12:28 CBC w Diff Auto diff final WBC 17.1 H (4.0-11.0) th/mm3 RBC 3.87 L (4.50-5.90) mil/mm3 Hgb 13.0 (13.0-17.0) gm/dL Hct 38.7 L (39.0-51.0) % MCV 99.9 (80.0-100.0) fL MCH 33.5 (27.0-34.0) pg MCHC 33.5 (32.0-36.0) % RDW 14.3 (11.6-17.2) % Plt Count 140 L (150-450) th/mm3 MPV 9.1 (7.0-11.0) fL Neut % (Auto) 91.9 H (16.0-70.0) % Lymph % (Auto) 3.0 L (9.0-44.0) % Sherman % (Auto) 4.6 (0.0-8.0) % Eos % (Auto) 0.2 (0.0-4.0) % Baso % (Auto) 0.3 (0.0-2.0) % Neut # (Auto) 15.7 H (1.8-7.7) th/mm3 Lymph # (Auto) 0.5 L (1.0-4.8) th/mm3 Sherman # (Auto) 0.8 (0.0-0.9) th/mm3 Eos # (Auto) 0.0 (0.0-0.4) th/mm3 Baso # (Auto) 0.1 (0.0-0.2) th/mm3 WBC Differential . Differential Comment . PT 9.4 L (9.8-11.6) sec INR 0.9 Ratio APTT 33.6 H (24.3-30.1) sec Sodium (136-145) meq/L Potassium (3.5-5.1) meq/L Chloride (98-107) meq/L Carbon Dioxide (21.0-32.0) meq/L Anion Gap (5-15) meq/L BUN (7-18) mg/dL Creatinine (0.60-1.30) mg/dL Estimated GFR (>89) mL/min Random Glucose (74-106) mg/dL Lactic Acid (0.4-2.0) mmol/L Calcium (8.5-10.1) mg/dL Magnesium (1.5-2.5) mg/dL Total Bilirubin (0.2-1.0) mg/dL AST (15-37) U/L ALT (12-78) U/L Alkaline Phosphatase (45-117) U/L Total Protein (6.4-8.2) g/dL Albumin (3.4-5.0) g/dL Urine Color Yellow (Yellw/Straw) Urine Clarity Clear (Clear) Urine pH 5.0 (5.0-8.5) Ur Specific Bernie Greater/equal 1.030 (1.002-1.035) Urine Protein 30 H (Neg-Trace) mg/dL Urine Glucose (UA) Negative (Negative) mg/dL Urine Ketones Trace H (Negative) mg/dL Urine Occult Blood Small H (Negative) Urine Nitrate Negative (Negative) Urine Bilirubin Negative (Negative) Urine Ictotest Negative (Negative) Urine Urobilinogen 0.2 (Less than 2) mg/dL Ur Leukocyte Esterase Moderate H (Negative) Urine RBC 0-3 (0-3) /hpf Urine WBC 51-189 H (0-5) /hpf Urine Bacteria Many H (None) /hpf Granular Casts 1-3 H (None) /lpf Urine Sperm Few H (None) /hpf Micro UA Comment Culture indicated Ur Microscopic Review Microscopic reviewed Urine Culture Comments Culture indicated 04/06/18 04/06/18 04/06/18 Range/Units 12:28 12:28 15:00 CBC w Diff WBC (4.0-11.0) th/mm3 RBC (4.50-5.90) mil/mm3 Hgb (13.0-17.0) gm/dL Hct (39.0-51.0) % MCV (80.0-100.0) fL MCH (27.0-34.0) pg MCHC (32.0-36.0) % RDW (11.6-17.2) % Plt Count (150-450) th/mm3 MPV (7.0-11.0) fL Neut % (Auto) (16.0-70.0) % Lymph % (Auto) (9.0-44.0) % Sherman % (Auto) (0.0-8.0) % Eos % (Auto) (0.0-4.0) % Baso % (Auto) (0.0-2.0) % Neut # (Auto) (1.8-7.7) th/mm3 Lymph # (Auto) (1.0-4.8) th/mm3 Sherman # (Auto) (0.0-0.9) th/mm3 Eos # (Auto) (0.0-0.4) th/mm3 Baso # (Auto) (0.0-0.2) th/mm3 WBC Differential Differential Comment PT (9.8-11.6) sec INR Ratio APTT (24.3-30.1) sec Sodium 133 L (136-145) meq/L Potassium 3.6 (3.5-5.1) meq/L Chloride 97 L (98-107) meq/L Carbon Dioxide 23.2 (21.0-32.0) meq/L Anion Gap 13 (5-15) meq/L BUN 48 H (7-18) mg/dL Creatinine 1.90 H (0.60-1.30) mg/dL Estimated GFR 34 L (>89) mL/min Random Glucose 109 H (74-106) mg/dL Lactic Acid 2.1 H 1.6 (0.4-2.0) mmol/L Calcium 9.6 (8.5-10.1) mg/dL Magnesium 1.4 L (1.5-2.5) mg/dL Total Bilirubin 0.4 (0.2-1.0) mg/dL AST 21 (15-37) U/L ALT 21 (12-78) U/L Alkaline Phosphatase 83 (45-117) U/L Total Protein 7.6 (6.4-8.2) g/dL Albumin 3.5 (3.4-5.0) g/dL Urine Color (Yellw/Straw) Urine Clarity (Clear) Urine pH (5.0-8.5) Ur Specific Bernie (1.002-1.035) Urine Protein (Neg-Trace) mg/dL Urine Glucose (UA) (Negative) mg/dL Urine Ketones (Negative) mg/dL Urine Occult Blood (Negative) Urine Nitrate (Negative) Urine Bilirubin (Negative) Urine Ictotest (Negative) Urine Urobilinogen (Less than 2) mg/dL Ur Leukocyte Esterase (Negative) Urine RBC (0-3) /hpf Urine WBC (0-5) /hpf Urine Bacteria (None) /hpf Granular Casts (None) /lpf Urine Sperm (None) /hpf Micro UA Comment Ur Microscopic Review Urine Culture Comments Imaging Data Radiologist's impression: Chest X-Ray 04/06/18 12:24 CONCLUSION: Negative for acute process Abdomen/Pelvis CT 04/06/18 12:27 CONCLUSION: 1. 1.8 cm hemorrhagic or proteinaceous cyst in the right kidney. 2. 3.9 cm infrarenal abdominal aortic aneurysm. 3. 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 4. No renal stones identified. 5. Mild enlargement of the prostate the prostate measures 5.9 x 5.1 cm.
[2018-04-06 12:44] LABS: Baso # (Auto) 0.1 th/mm3 (0.0-0.2); Baso % (Auto) 0.3 % (0.0-2.0); Eos % (Auto) 0.2 % (0.0-4.0); Hematocrit 38.7 % (39.0-51.0); Lymph # (Auto) 0.5 th/mm3 (1.0-4.8); Mean Corpuscular HGB Conc 33.5 % (32.0-36.0); Mean Corpuscular Hemoglobin 33.5 pg (27.0-34.0); Mean Corpuscular Volume 99.9 fL (80.0-100.0); Mean Platelet Volume 9.1 fL (7.0-11.0); Mono # (Auto) 0.8 th/mm3 (0.0-0.9); Mono % (Auto) 4.6 % (0.0-8.0); Neut # (Auto) 15.7 th/mm3 (1.8-7.7); Neut % (Auto) 91.9 % (16.0-70.0); Platelet Count 140 th/mm3 (150-450); Red Blood Count 3.87 mil/mm3 (4.50-5.90); Red Cell Distribution Width 14.3 % (11.6-17.2); White Blood Count 17.1 th/mm3 (4.0-11.0)
[2018-04-06 12:52] LABS: Chloride 97 meq/L (98-107); Potassium 3.6 meq/L (3.5-5.1); Sodium 133 meq/L (136-145)
--- NOTE | 2018-04-06 12:53 | XR ---
EXAM DATE: 04/06/2018 12:50 PM EDT AGE/SEX: 83 years / Male INDICATIONS: Fever CLINICAL DATA: This is the patient's initial encounter. Patient reports that signs and symptoms have been present for 4 - 6 days and indicates a pain score of 0/10. MEDICAL/SURGICAL HISTORY: . Hypertension. Hypercholesterolemia. . Hernia repair. Knee replac ement COMPARISON: [facility], CHEST SINGLE AP, 01/23/2017. . FINDINGS: A single AP view of the chest demonstrates the lungs to be symmetrically aerated without evidence of mass, infiltrate or effusion. The cardiomediastinal contours are unremarkable. Osseous structures a re intact. CONCLUSION: Negative for acute process Electronically signed by: Brent Pritchett MD 04/06/2018 12:51 PM EDT
[2018-04-06 12:55] LABS: Albumin 3.5 g/dL (3.4-5.0); Anion Gap 13 meq/L (5-15); Blood Urea Nitrogen 48 mg/dL (7-18); Calcium 9.6 mg/dL (8.5-10.1); Carbon Dioxide 23.2 meq/L (21.0-32.0); Glucose,Random 109 mg/dL (74-106); Magnesium 1.4 mg/dL (1.5-2.5)
[2018-04-06 12:57] LABS: Activated Partial Thrombo Time 33.6 sec (24.3-30.1); INR 0.9 Ratio; Prothrombin Time 9.4 sec (9.8-11.6)
[2018-04-06 12:58] LABS: Alanine Aminotransferase 21 U/L (12-78); Aspartate Aminotransferase 21 U/L (15-37)
[2018-04-06 12:59] LABS: Glomerular Filtration Rate 34 mL/min (>89)
[2018-04-06 13:00] LABS: Total Protein 7.6 g/dL (6.4-8.2)
[2018-04-06 13:01] LABS: Alkaline Phosphatase 83 U/L (45-117)
--- NOTE | 2018-04-06 13:29 | CT ---
EXAM DATE: 04/06/2018 1:05 PM EDT AGE/SEX: 83 years / Male INDICATIONS: Dizziness and nausea with urinary issues. CLINICAL DATA: This is the patient's initial encounter. Patient reports that signs and symptoms have been present for 4 - 6 days and indicates a pain score of 4/10. MEDICAL/SURGICAL HISTORY: Gastroesophageal reflux disease. Hypertension. Hypercholesterolemia . . Knee surgery. RADIATION DOSE: 12.42 CTDI (mGy) COMPARISON: . TECHNIQUE: Multiple contiguous axial images were obtained through the abdomen. Images were obtained using multiple row detector helical technique. Using automated exposure control and adjustment of the mA and/or kV according to patient size, radiation dose was kept as low as reasonably achievable to o btain optimal diagnostic quality images. DICOM format image data is available electronically for rev iew and comparison. FINDINGS: The limited portion of lung base visualized demonstrates COPD changes but is otherwise clear. The appearance of the liver, spleen, pancreas and adrenal glands is within normal limits. There is a 4 cm simple cyst within the upper pole the right kidney. In addition, there is a 1.8 cm he morrhagic or proteinaceous cyst seen within the right upper pole as well. More inferiorly there is a second 2 cm simple cyst identified. No stones are seen. The left kidney is normal in appearance. The infrarenal aorta is aneurysmal at 3.9 cm. 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 There is diffuse atherosclerotic plaquing. There is no retroperitoneal adenopathy. Loops of small large bowel are unremarkable. No free air free fluid is present. There is no free fluid within the pelvis. No iliac or inguinal adenopathy is seen. Loops of small lar ge bowel within the pelvis are unremarkable. The visualized bony structures demonstrate advanced degenerative changes but are otherwise intact. CONCLUSION: 1. 1.8 cm hemorrhagic or proteinaceous cyst in the right kidney. 2. 3.9 cm infrarenal abdominal aortic aneurysm. 3. 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 4. No renal stones identified. 5. Mild enlargement of the prostate the prostate measures 5.9 x 5.1 cm. Electronically signed by: Osmani Pritchett MD 04/06/2018 1:28 PM EDT
[2018-04-06] MEDS ORDERED: Bisacodyl 10 MG Supp RECTAL PRN (14:09)
[2018-04-06] MEDS: Sod Chloride 0.9% Inj 1,000 ML IV.CONT SCH (14:23)
--- NOTE | 2018-04-06 15:24 | P.HP ---
History of Present Illness Primary Care Physician: Lucio Magana MD Chief Complaint: Painful urination History of Present Illness: 83-year-old male with known history of hypertension, hyperlipidemia who presented to the hospital because of painful urination. Patient states that he is in normal state of health until last when he was out shopping he developed rigors. That lasted for approximately an hour or so by time he got home and over the weekend he started having worsening urinary symptoms with pain on urination. Patient states that last night he developed a fever and was given ibuprofen and pain reliever with resolution of his fever. However the day he had severely painful urination so he called his primary call doctor who notified him to go to the emergency department for evaluation. Patient had workup done emergency department found to have findings to indicate sepsis with urinary tract infection. Because that reason it was recommended by ER physician that the patient be admitted for further evaluation and management. Patient is followed by Dr. Rothman on a regular basis. He was just seen 1 month ago and at that time his urine was clear, patient did undergo rectal examination at that time. Patient did follow-up with his primary medical doctor 2 weeks ago and at that time his urine was clear. Patient denies any previous urinary symptoms, patient denies any previous urinary tract infections. - Diagnosis (1) Acute UTI (2) Sepsis Inpatient Certification: I certify that the inpatient services were ordered in accordance with Medicare regulations governing the order. This includes certification that hospital inpatient services are reasonable and necessary and in the case of services not specified as inpatient-only under 42 CFR 419.22(n), that they are appropriately provided as inpatient services in accordance to with the 2-midnight benchmark under 43 CFR 412.3(e) Estimated Total Length of Stay (Days): 2 Plans for Post Hospital Care: Not yet determined Review of Systems All other systems reviewed negative except as stated in HPI Constitutional: Reports chills, Reports fever(s) Genitourinary: Reports painful urination PMFSH - History History Provided By: Patient - Medical History Medical History: Medical History (Last Updated 04/06/18 @ 12:34 by Donna Gaines RN) GERD (gastroesophageal reflux disease) Gout High cholesterol Hypertension - Surgical History Surgical History: Surgical History (Last Updated 04/06/18 @ 12:34 by Donna Gaines RN) H/O knee surgery - Family History Family History: Family History (Last Updated 04/06/18 @ 15:20 by YEE Jean) Mother Family history of Alzheimer's disease Daughter Family history of cancer Father Family history of cancer - Tobacco History Second Hand Smoke Exposure: No Tobacco Use In Past 30 Days: No Smoking Status: Former smoker - Alcohol History How Often Do You Have a Drink Containing Alcohol: 4 or more times a week - Substance Use History Substance History: No History of Abuse - Immunization History Tetanus Immunization: <5 Years Medications and Allergies Active Medications: Active Medications Acetaminophen (Tylenol) 650 mg PO Q4H PRN PRN Reason: Temp > 100.4 Al Hydroxide/Mg Hydroxide (Milk Of Magnesia Liq) 30 ml PO Q12H PRN PRN Reason: Mild Constipation Bisacodyl (Dulcolax Supp) 10 mg RECTAL DAILY PRN PRN Reason: SEVERE CONSITIPATION Sodium Chloride (Ns Inj) 1,000 mls @ 100 mls/hr IV.CONT .Q10H PRISCILA Last Admin: 04/06/18 14:23 Dose: 100 mls/hr Lactulose (Lactulose Liq) 30 ml PO DAILY PRN PRN Reason: SEVERE CONSITIPATION Ondansetron HCl (Zofran Inj) 4 mg IV.PUSH Q6H PRN PRN Reason: NAUSEA OR VOMITING Senna/Docusate Sodium (Caron-Colace) 1 tab PO BID PRISCILA Sennosides (Senokot) 17.2 mg PO Q12H PRN PRN Reason: Moderate Constipation Sodium Chloride (Ns Flush) 2 ml IV.FLUSH PRN PRN PRN Reason: FLUSH AFTER USING IV ACCESS Allergies Allergy/AdvReac Type Severity Reaction Status Date / Time No Known Allergies Allergy Verified 04/06/18 10:19 Home Medications Medication Instructions Recorded Confirmed Type allopurinol 100 mg PO DAILY 04/06/18 04/06/18 History lisinopril 20 mg PO DAILY 04/06/18 04/06/18 History omeprazole 20 mg PO DAILY 04/06/18 04/06/18 History simvastatin 20 mg PO DAILY 04/06/18 04/06/18 History vitamin E 1,000 unit PO DAILY 04/06/18 04/06/18 History Exam Vital signs: Vital Signs 04/06/18 10:14 04/06/18 12:37 04/06/18 14:30 Temperature 99.1 F Pulse Rate 107 H Respiratory Rate 16 Blood Pressure 101/66 Pulse Oximetry 97 97 95 04/06/18 14:35 04/06/18 15:14 Temperature 98.4 F 98.8 F Pulse Rate 89 84 Respiratory Rate 14 18 Blood Pressure 93/50 L 117/74 Pulse Oximetry 95 Intake & Output 04/05/18 04/06/18 04/06/18 18:59 06:59 18:59 Intake Total 1100 / 1100 Balance 1100 / 1100 Weight 80 kg Intake: IV 1100 / 1100 NS Inj 1,000 ML @ Wide Open IV. 1000 / 1000 SIG BOLUS ONE Rx#:[id number] Rocephin Inj 1,000 MG In NS Inj 100 / 100 100 ML @ 200 mls/hr IV.SIG ONCE ONE Rx#:[id number] Narrative: GENERAL: Well-developed, well-nourished, in no acute distress. alert and orientated HEENT: Head is normocephalic without any lesions or masses noted. Facial features are symmetric. Eyes: Pupils equal round reactive to light. Extraocular muscles are intact. Conjunctivae were clear. Oropharyngeal: Pharynx without any erythema edema. Tongue is midline without deviation. Buccal mucosa is moist without any masses or lesions NECK: Supple without any masses. Trachea midline no deviation. No JVD, no bruits are appreciated CARDIAC: Regular rhythm, regular rate. S1/S2 are heard. No murmurs gallops or rubs. LUNGS: Clear to auscultation bilaterally. No wheeze, rhonchi or rales. No use of accessory muscles on inspiration or expiration. ABDOMEN: Soft, nontender. Nondistended. Bowel sounds heard in all 4 quadrants. No organomegaly or masses. Negative rebound, negative guarding EXTREMITIES: No edema, pulses are equal bilaterally. No cyanosis or clubbing NEUROLOGY: Mood and affect appear appropriate. Cranial nerves II through XII grossly intact. Muscle strength 5/5 in upper and lower extremities bilaterally. Deep tendon reflexes are 2+ in upper and lower extremities bilaterally. Results - Labs CBC & Chem 7: 04/06/18 12:28 04/06/18 12:28 Labs: Laboratory Results - last 24 hr 04/06/18 04/06/18 04/06/18 11:50 12:28 12:28 CBC w Diff Auto diff final WBC 17.1 H RBC 3.87 L Hgb 13.0 Hct 38.7 L MCV 99.9 MCH 33.5 MCHC 33.5 RDW 14.3 Plt Count 140 L MPV 9.1 Neut % (Auto) 91.9 H Lymph % (Auto) 3.0 L [place] % (Auto) 4.6 Eos % (Auto) 0.2 Baso % (Auto) 0.3 Neut # (Auto) 15.7 H Lymph # (Auto) 0.5 L [place] # (Auto) 0.8 Eos # (Auto) 0.0 Baso # (Auto) 0.1 WBC Differential . Differential Comment . PT 9.4 L INR 0.9 APTT 33.6 H Sodium Potassium Chloride Carbon Dioxide Anion Gap BUN Creatinine Estimated GFR Random Glucose Lactic Acid Calcium Magnesium Total Bilirubin AST ALT Alkaline Phosphatase Total Protein Albumin Urine Color Yellow Urine Clarity Clear Urine pH 5.0 Ur Specific [place] Greater/equal 1.030 Urine Protein 30 H Urine Glucose (UA) Negative Urine Ketones Trace H Urine Occult Blood Small H Urine Nitrate Negative Urine Bilirubin Negative Urine Ictotest Negative Urine Urobilinogen 0.2 Ur Leukocyte Esterase Moderate H Urine RBC 0-3 Urine WBC 51-189 H Urine Bacteria Many H Granular Casts 1-3 H Urine Sperm Few H Micro UA Comment Culture indicated Ur Microscopic Review Microscopic reviewed Urine Culture Comments Culture indicated 04/06/18 04/06/18 12:28 12:28 CBC w Diff WBC RBC Hgb Hct MCV MCH MCHC RDW Plt Count MPV Neut % (Auto) Lymph % (Auto) [place] % (Auto) Eos % (Auto) Baso % (Auto) Neut # (Auto) Lymph # (Auto) [place] # (Auto) Eos # (Auto) Baso # (Auto) WBC Differential Differential Comment PT INR APTT Sodium 133 L Potassium 3.6 Chloride 97 L Carbon Dioxide 23.2 Anion Gap 13 BUN 48 H Creatinine 1.90 H Estimated GFR 34 L Random Glucose 109 H Lactic Acid 2.1 H Calcium 9.6 Magnesium 1.4 L Total Bilirubin 0.4 AST 21 ALT 21 Alkaline Phosphatase 83 Total Protein 7.6 Albumin 3.5 Urine Color Urine Clarity Urine pH Ur Specific [place] Urine Protein Urine Glucose (UA) Urine Ketones Urine Occult Blood Urine Nitrate Urine Bilirubin Urine Ictotest Urine Urobilinogen Ur Leukocyte Esterase Urine RBC Urine WBC Urine Bacteria Granular Casts Urine Sperm Micro UA Comment Ur Microscopic Review Urine Culture Comments - Imaging Impressions Chest X-Ray 04/06/18 12:24 CONCLUSION: Negative for acute process Abdomen/Pelvis CT 04/06/18 12:27 CONCLUSION: 1. 1.8 cm hemorrhagic or proteinaceous cyst in the right kidney. 2. 3.9 cm infrarenal abdominal aortic aneurysm. 3. 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 4. No renal stones identified. 5. Mild enlargement of the prostate the prostate measures 5.9 x 5.1 cm. Caprini VTE Risk Assessment Caprini VTE Risk Assessment: Moderate/High Risk (score >= 2) Caprini Risk Assessment Model: Point Value = 1 Point Value = 2 Point Value = 3 Point Value = 5 Age 41-60 Minor surgery BMI > 25 kg/m2 Swollen legs Varicose veins or History of unexplained or recurrent spontaneous Oral contraceptives or hormone replacement Sepsis (< 1 month) Serious lung disease, including pneumonia (< 1 month) Abnormal pulmonary function Acute myocardial infarction Congestive heart failure (< 1 month) History of inflammatory bowel disease Medical patient at bed rest Age 61-74 Arthroscopic surgery Major open surgery (> 45 min) Laparoscopic surgery (> 45 min) Malignancy Confined to bed (> 72 hours) Immobilizing plaster cast Central venous access Age >= 75 History of VTE Family history of VTE Factor V Leiden Prothrombin [id number] Lupus anticoagulant Anticardiolipin antibodies Elevated serum homocysteine Heparin-induced thrombocytopenia Other congenital or acquired thrombophilia Stroke (< 1 month) Elective arthroplasty Hip, pelvis, or leg fracture Acute spinal cord injury (< 1 month) Prophylaxis Regimen: Total Risk Factor Score Risk Level Prophylaxis Regimen 0-1 Low Early ambulation 2 Moderate Order ONE of the following: *Sequential Compression Device (SCD) *Heparin 5000 units SQ BID 3-4 Higher Order ONE of the following medications: *Heparin 5000 units SQ TID *Enoxaparin/Lovenox 40 mg SQ daily (WT < 150 kg, CrCl > 30 mL/min) *Enoxaparin/Lovenox 30 mg SQ daily (WT < 150 kg, CrCl > 10-29 mL/min) *Enoxaparin/Lovenox 30 mg SQ BID (WT < 150 kg, CrCl > 30 mL/min) AND/OR *Sequential Compression Device (SCD) 5 or more Highest Order ONE of the following medications: *Heparin 5000 units SQ TID (Preferred with Epidurals) *Enoxaparin/Lovenox 40 mg SQ daily (WT < 150 kg, CrCl > 30 mL/min) *Enoxaparin/Lovenox 30 mg SQ daily (WT < 150 kg, CrCl > 10-29 mL/min) *Enoxaparin/Lovenox 30 mg SQ BID (WT < 150 kg, CrCl > 30 mL/min) AND *Sequential Compression Device (SCD) Assessment and Plan - Assessment (1) Acute UTI Code(s): N39.0 - Urinary tract infection, site not specified Status: Acute (2) Sepsis Code(s): A41.9 - Sepsis, unspecified organism Status: Acute - Plan Sepsis Leukocytosis Lactic acidosis Urinary tract infection -Patient meets criteria with leukocytosis, tachycardia, lactic acidosis, urinary tract infection -Patient was given Rocephin in emergency department, will continue Rocephin daily -Continue to follow blood cultures/urine cultures -Continue to monitor lactic acid level, CBC -Continue IV hydration 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
[2018-04-06] MEDS: Senna/Docusate Sodium 8.6/50 MG Tablet PO SCH (22:06)
[2018-04-06] MEDS: Acetaminophen 325 MG Tablet PO PRN (22:10)
[2018-04-07] MEDS: Sod Chloride 0.9% Inj 1,000 ML IV.CONT SCH ×3 (02:23→21:08)
[2018-04-07 07:31] LABS: Baso % (Auto) 0.4 % (0.0-2.0); Eos # (Auto) 0.1 th/mm3 (0.0-0.4); Eos % (Auto) 0.7 % (0.0-4.0); Hematocrit 30.3 % (39.0-51.0); Hemoglobin 10.5 gm/dL (13.0-17.0); Lymph # (Auto) 0.8 th/mm3 (1.0-4.8); Lymph % (Auto) 8.9 % (9.0-44.0); Mean Corpuscular HGB Conc 34.7 % (32.0-36.0); Mean Corpuscular Hemoglobin 34.1 pg (27.0-34.0); Mean Corpuscular Volume 98.5 fL (80.0-100.0); Mean Platelet Volume 9.3 fL (7.0-11.0); Mono # (Auto) 0.6 th/mm3 (0.0-0.9); Mono % (Auto) 7.2 % (0.0-8.0); Neut # (Auto) 7.5 th/mm3 (1.8-7.7); Neut % (Auto) 82.8 % (16.0-70.0); Platelet Count 124 th/mm3 (150-450); Red Blood Count 3.08 mil/mm3 (4.50-5.90); Red Cell Distribution Width 14.5 % (11.6-17.2)
[2018-04-07 07:50] LABS: Potassium 3.4 meq/L (3.5-5.1)
[2018-04-07 08:00] LABS: Calcium 8.4 mg/dL (8.5-10.1); Carbon Dioxide 24.2 meq/L (21.0-32.0)
[2018-04-07] MEDS: Senna/Docusate Sodium 8.6/50 MG Tablet PO SCH ×2 (09:13→21:10)
[2018-04-07] MEDS: Lisinopril 20 MG Tablet PO SCH (09:14)
--- NOTE | 2018-04-07 09:44 | P.PNIM ---
Subjective Interval history: Follow up UTI. Patient seen and examined, lying in bed with complaints of continued burning on urination. Reports of some urinary retention this morning which has improved, started on Flomax. Continue to monitor. Awaiting urine cultures. Continued on IV abx and IV fluids. Physical Exam Vital signs: Vital Signs 04/06/18 10:14 04/06/18 12:37 04/06/18 14:30 Temperature 99.1 F Pulse Rate 107 H Respiratory Rate 16 Blood Pressure 101/66 Pulse Oximetry 97 97 95 04/06/18 14:35 04/06/18 15:14 04/06/18 16:00 Temperature 98.4 F 98.8 F 99 F Pulse Rate 89 84 88 Respiratory Rate 14 18 20 Blood Pressure 93/50 L 117/74 136/64 Pulse Oximetry 95 97 04/06/18 20:00 04/07/18 00:00 04/07/18 08:00 Temperature 98.8 F 96.6 F L 96.9 F L Pulse Rate 92 H 85 89 Respiratory Rate 18 18 Blood Pressure 103/62 113/68 127/70 Pulse Oximetry 96 96 96 Intake & Output 04/06/18 04/07/18 04/07/18 18:59 06:59 18:59 Intake Total 1340 / 1340 1000 / 1000 Output Total 100 / 100 75 / 75 Balance 1240 / 1240 925 / 925 Weight 80 kg Intake: IV 1100 / 1100 1000 / 1000 NS Inj 1,000 ML @ 100 mls/hr IV 1000 / 1000 .CONT .Q10H PRISCILA Rx#:[id number] NS Inj 1,000 ML @ Wide Open IV. 1000 / 1000 SIG BOLUS ONE Rx#:[id number] Rocephin Inj 1,000 MG In NS Inj 100 / 100 100 ML @ 200 mls/hr IV.SIG ONCE ONE Rx#:[id number] Oral 240 / 240 Output: Urine 100 / 100 75 / 75 Narrative: GENERAL: Well-developed, well-nourished, in no acute distress. alert and orientated HEENT: Head is normocephalic without any lesions or masses noted. Facial features are symmetric. Eyes: Pupils equal round reactive to light. Extraocular muscles are intact. Conjunctivae were clear. Oropharyngeal: Pharynx without any erythema edema. Tongue is midline without deviation. Buccal mucosa is moist without any masses or lesions NECK: Supple without any masses. Trachea midline no deviation. No JVD, no bruits are appreciated CARDIAC: Regular rhythm, regular rate. S1/S2 are heard. No murmurs gallops or rubs. LUNGS: Clear to auscultation bilaterally. No wheeze, rhonchi or rales. No use of accessory muscles on inspiration or expiration. ABDOMEN: Soft, nontender. Nondistended. Bowel sounds heard in all 4 quadrants. No organomegaly or masses. Negative rebound, negative guarding EXTREMITIES: No edema, pulses are equal bilaterally. No cyanosis or clubbing NEUROLOGY: Mood and affect appear appropriate. Cranial nerves II through XII grossly intact. Muscle strength 5/5 in upper and lower extremities bilaterally. Deep tendon reflexes are 2+ in upper and lower extremities bilaterally. Results - Labs CBC & Chem 7: 04/07/18 06:45 04/07/18 06:45 Laboratory Results - last 24 hr 04/06/18 04/06/18 04/06/18 11:50 12:28 12:28 CBC w Diff Auto diff final WBC 17.1 H RBC 3.87 L Hgb 13.0 Hct 38.7 L MCV 99.9 MCH 33.5 MCHC 33.5 RDW 14.3 Plt Count 140 L MPV 9.1 Neut % (Auto) 91.9 H Lymph % (Auto) 3.0 L [place] % (Auto) 4.6 Eos % (Auto) 0.2 Baso % (Auto) 0.3 Neut # (Auto) 15.7 H Lymph # (Auto) 0.5 L [place] # (Auto) 0.8 Eos # (Auto) 0.0 Baso # (Auto) 0.1 WBC Differential . Differential Comment . PT 9.4 L INR 0.9 APTT 33.6 H Sodium Potassium Chloride Carbon Dioxide Anion Gap BUN Creatinine Estimated GFR Random Glucose Lactic Acid Calcium Magnesium Total Bilirubin AST ALT Alkaline Phosphatase Total Protein Albumin Urine Color Yellow Urine Clarity Clear Urine pH 5.0 Ur Specific [place] Greater/equal 1.030 Urine Protein 30 H Urine Glucose (UA) Negative Urine Ketones Trace H Urine Occult Blood Small H Urine Nitrate Negative Urine Bilirubin Negative Urine Ictotest Negative Urine Urobilinogen 0.2 Ur Leukocyte Esterase Moderate H Urine RBC 0-3 Urine WBC 51-189 H Urine Bacteria Many H Granular Casts 1-3 H Urine Sperm Few H Micro UA Comment Culture indicated Ur Microscopic Review Microscopic reviewed Urine Culture Comments Culture indicated 04/06/18 04/06/18 04/06/18 12:28 12:28 15:00 CBC w Diff WBC RBC Hgb Hct MCV MCH MCHC RDW Plt Count MPV Neut % (Auto) Lymph % (Auto) [place] % (Auto) Eos % (Auto) Baso % (Auto) Neut # (Auto) Lymph # (Auto) [place] # (Auto) Eos # (Auto) Baso # (Auto) WBC Differential Differential Comment PT INR APTT Sodium 133 L Potassium 3.6 Chloride 97 L Carbon Dioxide 23.2 Anion Gap 13 BUN 48 H Creatinine 1.90 H Estimated GFR 34 L Random Glucose 109 H Lactic Acid 2.1 H 1.6 Calcium 9.6 Magnesium 1.4 L Total Bilirubin 0.4 AST 21 ALT 21 Alkaline Phosphatase 83 Total Protein 7.6 Albumin 3.5 Urine Color Urine Clarity Urine pH Ur Specific [place] Urine Protein Urine Glucose (UA) Urine Ketones Urine Occult Blood Urine Nitrate Urine Bilirubin Urine Ictotest Urine Urobilinogen Ur Leukocyte Esterase Urine RBC Urine WBC Urine Bacteria Granular Casts Urine Sperm Micro UA Comment Ur Microscopic Review Urine Culture Comments 04/06/18 04/07/18 04/07/18 17:15 06:45 06:45 CBC w Diff Auto diff final WBC 9.0 RBC 3.08 L Hgb 10.5 L D Hct 30.3 L MCV 98.5 MCH 34.1 H MCHC 34.7 RDW 14.5 Plt Count 124 L MPV 9.3 Neut % (Auto) 82.8 H Lymph % (Auto) 8.9 L [place] % (Auto) 7.2 Eos % (Auto) 0.7 Baso % (Auto) 0.4 Neut # (Auto) 7.5 Lymph # (Auto) 0.8 L [place] # (Auto) 0.6 Eos # (Auto) 0.1 Baso # (Auto) 0.0 WBC Differential . Differential Comment . PT INR APTT Sodium 137 Potassium 3.4 L Chloride 103 Carbon Dioxide 24.2 Anion Gap 10 BUN 43 H Creatinine 1.50 H Estimated GFR 45 L Random Glucose 100 Lactic Acid 1.3 Calcium 8.4 L D Magnesium Total Bilirubin AST ALT Alkaline Phosphatase Total Protein Albumin Urine Color Urine Clarity Urine pH Ur Specific [place] Urine Protein Urine Glucose (UA) Urine Ketones Urine Occult Blood Urine Nitrate Urine Bilirubin Urine Ictotest Urine Urobilinogen Ur Leukocyte Esterase Urine RBC Urine WBC Urine Bacteria Granular Casts Urine Sperm Micro UA Comment Ur Microscopic Review Urine Culture Comments - Imaging Impressions Chest X-Ray 04/06/18 12:24 CONCLUSION: Negative for acute process Abdomen/Pelvis CT 04/06/18 12:27 CONCLUSION: 1. 1.8 cm hemorrhagic or proteinaceous cyst in the right kidney. 2. 3.9 cm infrarenal abdominal aortic aneurysm. 3. 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 4. No renal stones identified. 5. Mild enlargement of the prostate the prostate measures 5.9 x 5.1 cm. Assessment and Plan - Assessment (1) Acute UTI Code(s): N39.0 - Urinary tract infection, site not specified Status: Acute (2) Sepsis Code(s): A41.9 - Sepsis, unspecified organism Status: Acute - Plan This is an 83-year-old male patient with: Sepsis suspect secondary to UTI -Patient met criteria with leukocytosis, tachycardia, lactic acidosis, urinary tract infection. -Patient was given Rocephin in emergency department, will continue Rocephin daily. -Continue to follow blood cultures/urine cultures, blood cultures negative to date. Urine culture still pending, showing gram negative rods. -Continue to monitor lactic acid level, CBC. -Continue IV hydration. 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 -Monitor renal function. -Avoid nephrotoxins. Hypertension, hyperlipidemia -Continue home medications with hold parameters DVT prevention -Sequential compression devices Discharge Planning: Awaiting clinical improvement. Awaiting urine cultures. (2) Sepsis Qualifiers: Sepsis type: sepsis due to unspecified organism Qualified Code(s): A41.9 - Sepsis, unspecified organism
[2018-04-07] MEDS: Acetaminophen 325 MG Tablet PO PRN (21:47)
--- NOTE | 2018-04-08 07:49 | P.DS ---
Date of admission: 04/06/18 14:06 Primary care physician: Lucio Magana MD Anticipated date of discharge: 04/08/18 Brief History from admission: 83-year-old male with known history of hypertension, hyperlipidemia who presented to the hospital because of painful urination. Patient states that he is in normal state of health until last when he was out shopping he developed rigors. That lasted for approximately an hour or so by time he got home and over the weekend he started having worsening urinary symptoms with pain on urination. Patient states that last night he developed a fever and was given ibuprofen and pain reliever with resolution of his fever. However the day he had severely painful urination so he called his primary call doctor who notified him to go to the emergency department for evaluation. Patient had workup done emergency department found to have findings to indicate sepsis with urinary tract infection. Because that reason it was recommended by ER physician that the patient be admitted for further evaluation and management. Patient is followed by Dr. Rothman on a regular basis. He was just seen 1 month ago and at that time his urine was clear, patient did undergo rectal examination at that time. Patient did follow-up with his primary medical doctor 2 weeks ago and at that time his urine was clear. Patient denies any previous urinary symptoms, patient denies any previous urinary tract infections. Patient update on day of discharge: Follow up UTI. Patient seen and examined, lying in bed comfortably. No new changes. Doing well. Much improved. DS: Diagnosis - Discharge Diagnosis (1) Acute UTI Status: Acute (2) Sepsis Status: Acute DS: Medications - Discharge Medications Prescriptions: ciprofloxacin HCl [Cipro] 500 mg PO Q12H 12 Days #24 tab tamsulosin 0.4 mg PO DAILY 30 Days #30 cap DS: Summary Hospital Course: This is an 83-year-old male patient with sepsis suspect secondary to UTI. Patient met criteria with leukocytosis, tachycardia, lactic acidosis, urinary tract infection. Patient was given Rocephin in emergency department, will continue Rocephin daily. Continue to follow blood cultures/urine cultures, blood cultures negative to date. Urine culture showing gram negative rods. Acute renal failure superimposed on chronic kidney disease stage II, improved on day of discharge. History of hypertension, hyperlipidemia, continue home medications with hold parameters. Stable on discharge. Rx per dc plan. Activity as tolerated. Diet as tolerated. Follow up PCP. - Time Spent with Patient Total time spent providing and/or coordinating discharge services: Greater than 30 minutes - Quality: VTE Deep Vein Thrombosis/Pulmonary Embolism Present on Admission: No Exam Vital signs: Vital Signs 04/07/18 08:00 04/07/18 12:00 04/07/18 17:39 Temperature 96.9 F L 97.7 F 96.9 F L Pulse Rate 89 88 86 Respiratory Rate 18 Blood Pressure 127/70 142/68 H 129/73 Pulse Oximetry 96 95 97 04/07/18 20:00 04/08/18 00:00 Temperature 96.8 F L 97.5 F L Pulse Rate 85 83 Respiratory Rate 18 18 Blood Pressure 133/78 116/66 Pulse Oximetry 93 L 95 Intake & Output 04/07/18 04/08/18 04/08/18 18:59 06:59 18:59 Intake Total 2100 / 2100 1200 / 1200 Output Total 800 / 800 300 / 300 Balance 1300 / 1300 900 / 900 Weight 80 kg 86.8 kg Intake: IV 1100 / 1100 1000 / 1000 NS Inj 1,000 ML @ 100 mls/hr IV 1000 / 1000 1000 / 1000 .CONT .Q10H PRISC[facility]A Rx#:[id number] Rocephin Inj 1,000 MG In NS Inj 100 / 100 100 ML @ 200 mls/hr IV.SIG Q24H PRISCILA Rx#:[id number] Oral 1000 / 1000 200 / 200 Output: Urine 800 / 800 300 / 300 Other: # Voids 5 Narrative: GENERAL: Well-developed, well-nourished, in no acute distress. alert and orientated HEENT: Head is normocephalic without any lesions or masses noted. Facial features are symmetric. Eyes: Pupils equal round reactive to light. Extraocular muscles are intact. Conjunctivae were clear. Oropharyngeal: Pharynx without any erythema edema. Tongue is midline without deviation. Buccal mucosa is moist without any masses or lesions NECK: Supple without any masses. Trachea midline no deviation. No JVD, no bruits are appreciated CARDIAC: Regular rhythm, regular rate. S1/S2 are heard. No murmurs gallops or rubs. LUNGS: Clear to auscultation bilaterally. No wheeze, rhonchi or rales. No use of accessory muscles on inspiration or expiration. ABDOMEN: Soft, nontender. Nondistended. Bowel sounds heard in all 4 quadrants. No organomegaly or masses. Negative rebound, negative guarding EXTREMITIES: No edema, pulses are equal bilaterally. No cyanosis or clubbing NEUROLOGY: Mood and affect appear appropriate. Cranial nerves II through XII grossly intact. Muscle strength 5/5 in upper and lower extremities bilaterally. Deep tendon reflexes are 2+ in upper and lower extremities bilaterally. Results Procedures completed during hospitalization: See above. Labs on day of discharge: Labs from last 24 hours 04/07/18 04/06/18 06:45 11:50 Sodium 137 Potassium 3.4 L Chloride 103 Carbon Dioxide 24.2 Anion Gap 10 BUN 43 H Creatinine 1.50 H Estimated GFR 45 L Random Glucose 100 Calcium 8.4 L D Urine Color Yellow Urine Clarity Clear Urine pH 5.0 Ur Specific [place] Greater/equal 1.030 Urine Protein 30 H Urine Glucose (UA) Negative Urine Ketones Trace H Urine Occult Blood Small H Urine Nitrate Negative Urine Bilirubin Negative Urine Ictotest Negative Urine Urobilinogen 0.2 Ur Leukocyte Esterase Moderate H Urine RBC 0-3 Urine WBC 51-189 H Urine Bacteria Many H Granular Casts 1-3 H Urine Sperm Few H Micro UA Comment Culture indicated Ur Microscopic Review Microscopic reviewed Urine Culture Comments Culture indicated Preliminary micro results at discharge 04/06/18 11:50 Urine Culture - Preliminary Clean Catch Urine gram negative rods 04/06/18 12:35 Aerobic Blood Culture - Preliminary Blood - Peripheral No growth in 1 day Anaerobic Blood Culture - Preliminary No growth in 1 day 04/06/18 12:30 Aerobic Blood Culture - Preliminary Blood - Peripheral No growth in 1 day Anaerobic Blood Culture - Preliminary No growth in 1 day - Impressions ITS Impressions Chest X-Ray 04/06/18 12:24 CONCLUSION: Negative for acute process Abdomen/Pelvis CT 04/06/18 12:27 CONCLUSION: 1. 1.8 cm hemorrhagic or proteinaceous cyst in the right kidney. 2. 3.9 cm infrarenal abdominal aortic aneurysm. 3. 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 4. No renal stones identified. 5. Mild enlargement of the prostate the prostate measures 5.9 x 5.1 cm. Discharge Plan - Discharge Disposition Patient Disposition: 01 Discharge Home - Discharge Condition Condition: Good - Discharge Order Discharge Orders: Discharge Order (Routine); Ordered 04/08/18 Ordered By: Jeane Bobo - Discharge Details Anticipated Discharge Date: 04/08/18 - Physicians Team Primary Care Provider: Lucio Magana Attending Provider: Kolby Riggs Other Providers: Jaleel Marmolejo
[2018-04-08] MEDS: Senna/Docusate Sodium 8.6/50 MG Tablet PO SCH (08:20)
[2018-04-08] MEDS: Lisinopril 20 MG Tablet PO SCH (08:21)
[2018-04-08 10:00] LABS: Calcium 8.5 mg/dL (8.5-10.1); Carbon Dioxide 23.6 meq/L (21.0-32.0)
[2018-04-08 10:07] LABS: Potassium 3.6 meq/L (3.5-5.1)
== END 2018-04-08 10:24 | disposition home or self-care (01) ==
LOC: PHED 10:10 → PHEDA 14:06 → PH3 15:30
PROVIDERS: ADMIT Internal Medicine; ATTEND Internal Medicine